=== PATIENT | male | born 1990 | race African-American/Black ===

== ENCOUNTER 2020-10-06 16:57 | Emergency (ER) | payer OTHER, SELFPAY ==
--- NOTE | ~2020-10-06 | CT_ITS ---
EXAMINATION: CT abdomen pelvis w con DATE: 10/06/2020 18:57 INDICATION: Abdominal pressure. TECHNIQUE: Computed tomography (CT) of the abdomen and pelvis was performed with 100 mL Omnipaque-350 intravenous contrast. Automated exposure control and iterative reconstruction technique were employe d. The dose-length product was 1196.74 mGy-cm. COMPARISON: None FINDINGS: Discoid atelectasis/scarring at the medial basilar left lower lobe. Additional less degree in the marcy gula. Heart size is normal. No pericardial or pleural effusion. Small sliding-type hiatal hernia. 3-4 mm low-attenuation likely cyst or hemangioma in the inferior right hepatic lobe. Gallbladder, spleen , pancreas, right kidney and bilateral adrenal glands are normal. Scattered cortical scarring at the right kidney most prominent in the upper pole which likely sequela of prior infection or infarction. Small bowel and appendix are normal. Large amount of stool scattered throughout the colon most promin ent at the distal sigmoid colon and rectum. There is wall thickening at the rectum which is seen with proctitis or stercoral colitis. Sauceda catheter within the decompressed bladder. No free intraperiton eal gas or fluid. No pathologically enlarged abdominal or pelvic lymphadenopathy. Bones are unremarka ble. IMPRESSION: 1. Large amount of colonic stool particularly at the rectum and distal sigmoid colon consistent with constipation. 2. Wall thickening at the rectum which could be seen with infectious or inflammatory proctitis or kam rcoral colitis related to chronic constipation. Reviewed, dictated and finalized at location A. IMPRESSION: 1. Large amount of colonic stool particularly at the rectum and distal sigmoid colon consistent with constipation. 2. Wall thickening at the rectum which could be seen with infectious or inflamm atory proctitis or stercoral colitis related to chronic constipation.
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
[2020-10-06 16:56] VITALS: BP 132/71; PULSE 96; RESP 18; TEMP 37.1; O2SAT 100
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
[2020-10-06 18:11] LABS: Basophils Absolute Auto 0.1 K/mm3 (0.0-0.1); Basophils Percent Auto 0.5 % (0.2-1.2); Eosinophils Absolute Auto 0.4 K/mm3 (0-0.3); Eosinophils Percent Auto 3.6 % (0-4.4); Hematocrit 32.6 % (42.0-52.0); Hemoglobin 10.6 g/dL (14.0-18.0); Immature Granulocyte Absolute 0.04 K/mm3 (0.00-0.031); Immature Granulocyte Percent A 0.4 % (0-0.5); Lymphocytes Absolute Auto 1.79 K/mm3 (0.9-3.2); Lymphocytes Percent Auto 16.3 % (18.3-44.2); Mean Corpuscular HGB Conc 32.5 g/dl (32-36); Mean Corpuscular Hemoglobin 28.3 pg (26-34); Mean Corpuscular Volume 86.9 fl (80-100); Mean Platelet Volume 8.9 fl (7.4-10.4); Monocytes Absolute Auto 0.7 K/mm3 (0.1-0.6); Monocytes Percent Auto 6.3 % (2.6-8.5); Neutrophils Percent Auto 72.9 % (45.5-73.1); Platelet Count Result 442 k/mm3 (150-375); Red Blood Count 3.75 M/mm3 (4.6-6.20); Red Cell Distribution Width 15.9 % (11.5-14.5)
[2020-10-06 18:22] LABS: Lactic Acid Reflex 1.6 mmol/L (0.7-2.1)
[2020-10-06 18:23] LABS: Alanine Aminotransferase 12 U/L (4-50); Alkaline Phosphatase 66 U/L (38-126); Anion Gap 8 mmol/L (8-16); Aspartate Amino Transferase 24 U/L (17-59); Bilirubin,Total < 0.1 mg/dL (0.2-1.3); Blood Urea Nitrogen 14 mg/dL (9-20); Calcium 8.7 mg/dL (8.4-10.2); Carbon Dioxide 28 mmol/L (22-30); Chloride 102 mmol/L (98-107); Estimated CRCL calculation 147 ml/min; Estimated Glomerular Filt Rate > 60; Glucose 134 mg/dL (75-110); Lipase 32 U/L (23-300); Potassium 3.8 mmol/L (3.4-5.0); Sodium 138 mmol/L (137-145)
[2020-10-06] MEDS: MAGNESIUM CITRATE 300 ML BTL PO (19:23)
[2020-10-06 19:39] LABS: Add Urine Microscopic? YES; Appearance Urine Cloudy (Clear); Bacteria Urine Trace /hpf; Bilirubin Urine Negative (Negative); Budding Yeast Urine Present /hpf; Color Urine Yellow (Yellow); Glucose Urine UA Negative (Negative); Ketones Urine Negative (Negative); Leukocyte Esterase Ur 3+ LEU/UL (Negative); Mucus Urine Rare /lpf; Nitrate Urine Negative (Negative); Protein Urine Negative (Negative); RBC Urine >75 /hpf (0-2); Specific Grav Ur 1.016 (1.001-1.035); Squamous Epithelial Cell Urine Occasional /hpf (Few); Urobilinogen Urine Negative mg/dL (<2.0); WBC Urine 21-30 /hpf
[2020-10-06 19:40] LABS: Blood Urine Negative (Negative)
[2020-10-06 21:48] VITALS: BP 136/78; PULSE 89; RESP 18; O2SAT 96
--- NOTE | 2020-10-06 22:21 | PC.NURSE ---
Cheryl called at 2200 for BLS transfer back to [facility]. ETA [id number]
--- NOTE | 2020-10-06 22:23 | PC.NURSE ---
Report called to [facility] with an update. They are not able to provide transportation. EMS will transport about 0015. Pt given update.
[2020-10-07 00:14] VITALS: BP 121/68; PULSE 82; RESP 18; O2SAT 96
--- NOTE | 2020-10-07 00:49 | PC.NURSE ---
Called [facility] for updated ETA of [id number]
--- NOTE | 2020-10-07 01:01 | PC.NURSE ---
Pt sleeping. Transport contacted and will now be here at 0330.
--- NOTE | 2020-10-07 04:22 | PC.NURSE ---
Called [facility] for an updated ETA of [id number]
[2020-10-07 06:48] VITALS: BP 132/71; PULSE 80; RESP 16; O2SAT 96
--- NOTE | 2020-10-07 06:48 | PC.NURSE ---
Awaiting transport to [place]. Last update they would be here at 0630.
--- NOTE | 2020-10-07 06:53 | PC.NURSE ---
Called [facility] for updated time for transport. [phone] is ETA.
--- NOTE | 2020-10-07 07:25 | PC.NURSE ---
Pt asleep easily arousable, non-labored respirations, siderails x2 up and adaptive call light within reach. Awaiting transport back to [place]
[2020-10-07 10:12] VITALS: BP 150/74; PULSE 109; RESP 18; O2SAT 100
--- NOTE | 2020-10-07 10:40 | PC.NURSE ---
Incontinence care provided (pt had small amt of hard stool), repositioned for comfort. Pt asking for his home medications (oxycodone, Lyrica, amitriptyline, baclofen), Dr Brown aware and orders placed per [place] [facility]
[2020-10-07] MEDS: PREGABALIN (*CRX) 75 MG CAPSULE 150 MG PO (11:23)
[2020-10-07] MEDS: oxyCODONE HCL (*CRX) 5 MG TAB IR PO (11:24)
--- NOTE | 2020-10-07 11:45 | PC.NURSE ---
Pt repositioned for comfort, lunch tray ordered. Waiting for transport back to [place]
[2020-10-07] MEDS: BACLOFEN 10 MG TABLET PO (11:51)
[2020-10-07] MEDS: AMITRIPTYLINE HCL 25 MG TABLET 150 MG PO (11:51)
== END 2020-10-07 12:56 ==
PROVIDERS: Emergency Provider Emergency Medicine
DX: K59.00 Constipation, unspecified (principal); G82.50 Quadriplegia, unspecified; S14.109S Unspecified injury at unspecified level of cervical spinal cord, sequela; W34.00XS Accidental discharge from unspecified firearms or gun, sequela
CPT/HCPCS: 36415; 71045; 74177; 80053; 81001; 83605; 83690; 85025; 87086; 87088; 99284; A9270; Q9967

== ENCOUNTER 2020-10-11 01:39 | Emergency (ER) | payer OTHER, SELFPAY ==
--- NOTE | ~2020-10-11 | CT_ITS ---
EXAMINATION: CT abdomen pelvis w con INDICATION: Abdominal pain TECHNIQUE: Computed tomographic images of the abdomen and pelvis were obtained after the administrati on of 100 cc of Omnipaque 350 intravenous contrast. The dose-length product (DLP) was 1336.34 mGy-cm. Automated exposure control and iterative reconstruction technique were employed. COMPARISON: 10/06/2020 FINDINGS: Minimal dependent atelectasis is present in the lung bases. The heart size is normal. The l iver, spleen, pancreas, gallbladder, and adrenal glands are normal. There is moderate cortical scarri ng of the left kidney. The right kidney is unremarkable. No pathologically enlarged abdominal or pelv ic lymph nodes are identified. There is no free intraperitoneal gas or evidence of bowel obstruction. A large volume of colonic stool is present. The appendix is normal. The bladder is decompressed by F oley catheter. IMPRESSION: 1. Constipation. Reviewed, dictated and finalized at location A. IMPRESSION: 1. Constipation.
[2020-10-11 01:38] VITALS: BP 144/89; PULSE 82; RESP 18; TEMP 36.3; O2SAT 100
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
[2020-10-11] MEDS: SODIUM CHLORIDE 0.9% IV 1,000 ML 999 ML IV CONT (02:14)
[2020-10-11] MEDS: MORPHINE SULFATE (*CRX) 4 MG/ML INJ IV PUSH (02:14)
[2020-10-11] MEDS: ONDANSETRON INJ 4 MG/2 ML VIAL IV PUSH (02:14)
[2020-10-11 02:32] LABS: Basophils Absolute Auto 0.1 K/mm3 (0.0-0.1); Basophils Percent Auto 0.6 % (0.2-1.2); Eosinophils Absolute Auto 0.3 K/mm3 (0-0.3); Eosinophils Percent Auto 3.6 % (0-4.4); Hemoglobin 10.2 g/dL (14.0-18.0); Immature Granulocyte Absolute 0.03 K/mm3 (0.00-0.031); Immature Granulocyte Percent A 0.3 % (0-0.5); Lymphocytes Absolute Auto 2.11 K/mm3 (0.9-3.2); Lymphocytes Percent Auto 22.4 % (18.3-44.2); Mean Corpuscular HGB Conc 32.9 g/dl (32-36); Mean Corpuscular Hemoglobin 28.6 pg (26-34); Mean Corpuscular Volume 86.8 fl (80-100); Mean Platelet Volume 9.1 fl (7.4-10.4); Monocytes Absolute Auto 0.9 K/mm3 (0.1-0.6); Monocytes Percent Auto 9.7 % (2.6-8.5); Neutrophils Percent Auto 63.4 % (45.5-73.1); Platelet Count Result 425 k/mm3 (150-375); Red Blood Count 3.57 M/mm3 (4.6-6.20); Red Cell Distribution Width 15.6 % (11.5-14.5); White Blood Count 9.4 K/mm3 (4.5-10.0)
[2020-10-11 02:43] LABS: Alanine Aminotransferase 17 U/L (4-50); Albumin Level 3.6 g/dL (3.5-5.1); Alkaline Phosphatase 55 U/L (38-126); Anion Gap 5 mmol/L (8-16); Aspartate Amino Transferase 25 U/L (17-59); Bilirubin,Total < 0.1 mg/dL (0.2-1.3); Blood Urea Nitrogen 15 mg/dL (9-20); Calcium 8.7 mg/dL (8.4-10.2); Carbon Dioxide 29 mmol/L (22-30); Chloride 104 mmol/L (98-107); Estimated CRCL calculation 137 ml/min; Estimated Glomerular Filt Rate > 60; Glucose 87 mg/dL (75-110); Lipase 25 U/L (23-300); Potassium 4.2 mmol/L (3.4-5.0); Sodium 138 mmol/L (137-145)
--- NOTE | 2020-10-11 04:09 | PC.NURSE ---
[facility] accepted return to [facility] ETA 0500 Trip# [id number]
[2020-10-11] MEDS: MAGNESIUM CITRATE 300 ML BTL PO (04:50)
[2020-10-11 05:02] VITALS: BP 133/78; PULSE 81; RESP 16; TEMP 36.9; O2SAT 98
== END 2020-10-11 05:03 ==
PROVIDERS: Emergency Provider Emergency Medicine; PCP Family Medicine
DX: K59.00 Constipation, unspecified (principal); G82.50 Quadriplegia, unspecified; S14.109S Unspecified injury at unspecified level of cervical spinal cord, sequela; W34.00XS Accidental discharge from unspecified firearms or gun, sequela
CPT/HCPCS: 36415; 74177; 80053; 83605; 83690; 85025; 96361; 96374; 96375; 99285; A9270; J2270; J2405; J7030; Q9967

== ENCOUNTER 2020-10-12 23:43 | Emergency (ER) | payer OTHER, SELFPAY ==
[2020-10-12 23:46] VITALS: BP 128/76; PULSE 86; RESP 16; TEMP 36.7
--- NOTE | 2020-10-13 00:28 | PC.NURSE ---
large BM removed with enema, Dr Castillo manually disimpacted pt for another lg BM
--- NOTE | 2020-10-13 00:33 | ED.ABDPAIN ---
HPI - Abdominal Pain General Chief Complaint: Abdominal Pain Stated Complaint: PRESSURE ON HIS BUTT Time Seen by Provider: 10/12/20 23:49 Source: patient Mode of arrival: EMS Limitations: no limitations History of Present Illness HPI narrative: 30-year-old with a history of paraplegia coming from a [facility] with complaints of rectal pain. Patient states the pain started this morning. He said he had a very small bowel movement. He denies any nausea or vomiting. MD elicited complaint: other (Rectal pain) Pertinent past history: constipation Onset (ago): day(s) (1) Pain Consistency: constant Quality: aching Migration to: no migration Exacerbating factors: nothing Relieving factors: nothing Related Data Home Medications Medication Instructions Recorded Confirmed amitriptyline 10/06/20 amitriptyline 10/06/20 10/06/20 amlodipine 10/06/20 baclofen mg 10/06/20 bisacodyl mg RECTAL 10/06/20 duloxetine mg PO 10/06/20 ergocalciferol (vitamin D2) 10/06/20 [Vitamin D2] lamotrigine 10/06/20 ondansetron 10/06/20 paroxetine HCl mg PO 10/06/20 pregabalin 10/06/20 propranolol 10/06/20 sulfamethoxazole-trimethoprim tablet 10/06/20 Allergies Allergy/AdvReac Type Severity Reaction Status Date / Time No Known Allergies Allergy Verified 10/06/20 17:36 Review of Systems Review of Systems: All systems reviewed & are unremarkable except as noted in HPI and below Constitutional: Constitutional: Reports no additional constitutional complaints Eyes: Eyes: Reports no additional eye complaints Cardiovascular: Cardiovascular: Reports no additional cardiovascular complaints Respiratory: Respiratory: Reports no additional respiratory complaints Gastrointestinal: Gastrointestinal: Reports as per HPI Genitourinary: Genitourinary: Reports as per HPI Musculoskeletal: Musculoskeletal: Reports no additional musculoskeletal complaints PMFSH Past Medical History Medical History Neuropathic pain Quadriplegia Social History Social History Gender identity (if verbalized by the patient): Male Exam Narrative: Exam Narrative: GENERAL: Well-appearing, well-nourished, and in no acute distress. HEAD: Normocephalic, atraumatic. EYES: PERRLA and EOMI. NECK: Supple. CHEST: Clear to auscultation. No respiratory distress. HEART: Regular rate and rhythm. No murmur heard. Normal peripheral pulses. ABDOMEN: Soft, nontender, nondistended, normal active bowel sounds. Rectal fecal imapction EXTREMITIES:no edema SKIN: Warm, dry, no rash. NEURO: Alert and oriented x3. paraplegic PSYCH: Normal mood and affect. Procedures Other Procedure Procedure 1: Other Procedure: Manually disimpacted stool after a eema , large amount of stool was passed. Course Vital Signs Vital signs: Vital Signs Temperature 36.7 C 10/12/20 23:46 Pulse Rate 86 10/12/20 23:46 Respiratory Rate 16 10/12/20 23:46 Blood Pressure 128/76 10/12/20 23:46 Temperature 36.7 C 10/12/20 23:46 Pulse Rate 86 10/12/20 23:46 Respiratory Rate 16 10/12/20 23:46 Blood Pressure 128/76 10/12/20 23:46 Discharge Plan Discharge Clinical Impression: Fecal impaction in rectum Patient Disposition: [facility] Living Condition: Stable Instructions: Antibiotic Form, Rectal Pain (ED) Prescriptions: No Action amitriptyline 150 mg tablet RF: 0 sulfamethoxazole-trimethoprim 800-160 mg tablet RF: 0 amitriptyline 50 mg tablet RF: 0 lamotrigine 25 mg tablet RF: 0 baclofen 20 mg tablet RF: 0 propranolol 10 mg tablet RF: 0 amlodipine 10 mg tablet RF: 0 bisacodyl 10 mg suppository RECTAL RF: 0 paroxetine HCl 20 mg tablet PO RF: 0 ergocalciferol (vitamin D2) [Vitamin D2] 1,250 mcg (50,000 unit) capsule
[2020-10-13 01:03] VITALS: BP 138/87; PULSE 82; RESP 16; TEMP 36.7; O2SAT 98
[2020-10-13 04:21] VITALS: BP 127/92; PULSE 80; RESP 18; O2SAT 97
[2020-10-13 07:24] VITALS: BP 120/87; PULSE 84; RESP 20; O2SAT 100
--- NOTE | 2020-10-13 07:47 | PC.NURSE ---
update eta for [facility] [id number]
[2020-10-13 09:12] VITALS: BP 117/79; PULSE 86; RESP 20; O2SAT 99
[2020-10-13 10:00] VITALS: BP 134/90; PULSE 87; RESP 20; O2SAT 99
== END 2020-10-13 10:00 ==
LOC: ANHED 10-13 00:43
PROVIDERS: Emergency Provider Family Medicine; PCP Family Medicine
DX: K56.41 Fecal impaction (principal); G82.50 Quadriplegia, unspecified
CPT/HCPCS: 99282

== ENCOUNTER 2020-10-19 21:44 | Emergency (ER) | payer OTHER, SELFPAY ==
[2020-10-19] VITALS (9 sets, daily range): BP systolic 116; BP diastolic 69; PULSE 96–107; RESP 13–24; TEMP 37.1; O2SAT 100
--- NOTE | ~2020-10-19 | XR_ITS ---
EXAMINATION: XR chest 1V portable EXAM DATE: 10/19/2020 22:24 INDICATION: Check location of pre-existing PICC line. TECHNIQUE: Portable AP frontal chest x-ray was obtained. Comparison is made to prior examination from 10/06/2020. FINDINGS: No change in position of the left-sided PICC line, tip projecting over the lower aspect of the SVC, adequate. There may be some pulmonary vascular congestion, or this could be from poor inspir ation. The lungs are clear. There are no pleural effusions. Cardiac silhouette is prominent but mag nified on this AP technique. There is no pneumothorax suspected. The bones and soft tissues are un remarkable. IMPRESSION: 1. Pulmonary vascular congestion versus crowding due to poor inspiration. 2. PICC line in position. Reviewed, dictated and finalized at location G.
--- NOTE | ~2020-10-19 | CT_ITS ---
EXAMINATION: CT abdomen pelvis w con EXAM DATE: 10/19/2020 23:47 INDICATION: Abdominal pain LLQ tenderness. TECHNIQUE: Spiral CT of the abdomen and pelvis was performed following intravenous injection of 100 m L Omnipaque 350. Axial, coronal and sagittal images of the abdomen and pelvis were reviewed. The do se-length product (DLP) for this examination was 1253.85 mGy-cm. The exposure was tailored according to patient size (auto mA exposure control), and iterative reconstruction (ASIR) was used as addition al dose reduction technique. Comparison is made to prior examination from 10/11/2020. FINDINGS: The liver, spleen, adrenal glands and pancreas are unremarkable. Gallbladder is unremarkab le. No biliary obstruction. Portal and splenic veins are patent. Kidneys enhance symmetrically. T here is no hydronephrosis. Regions of left renal cortical scarring. The prostate is unremarkable. T he bladder is collapsed with Sauceda catheter balloon anchor inside. There is no retroperitoneal or pe lvic lymphadenopathy. The appendix is normal. The stomach appears distended, but without evidence of outlet obstruction. There is moderate amount of colonic stool. No free intraperitoneal gas. The heart is normal in si ze. There are no pericardial or pleural effusions. Left basilar linear atelectasis. The bones are unremarkable. Compared to previous examination, improvement in previously seen right basilar subsegm ental atelectasis. Otherwise no significant interval change. IMPRESSION: 1. Moderate amount of colonic stool. Constipation? 2. Distended stomach. 3. Left renal cortical scarring. Reviewed, dictated and finalized at location G.
[2020-10-19 22:53] LABS: Basophils Absolute Auto 0.1 K/mm3 (0.0-0.1); Basophils Percent Auto 0.5 % (0.2-1.2); Eosinophils Absolute Auto 0.4 K/mm3 (0-0.3); Eosinophils Percent Auto 4.2 % (0-4.4); Hematocrit 31.7 % (42.0-52.0); Hemoglobin 10.3 g/dL (14.0-18.0); Immature Granulocyte Absolute 0.06 K/mm3 (0.00-0.031); Immature Granulocyte Percent A 0.6 % (0-0.5); Lymphocytes Absolute Auto 1.78 K/mm3 (0.9-3.2); Lymphocytes Percent Auto 19.1 % (18.3-44.2); Mean Corpuscular HGB Conc 32.5 g/dl (32-36); Mean Corpuscular Hemoglobin 28.3 pg (26-34); Mean Corpuscular Volume 87.1 fl (80-100); Mean Platelet Volume 8.8 fl (7.4-10.4); Monocytes Absolute Auto 0.7 K/mm3 (0.1-0.6); Monocytes Percent Auto 7.6 % (2.6-8.5); Neutrophils Absolute Auto 6.3 K/mm3 (1.3-6.7); Platelet Count Result 423 k/mm3 (150-375); Red Blood Count 3.64 M/mm3 (4.6-6.20); Red Cell Distribution Width 16.1 % (11.5-14.5); White Blood Count 9.3 K/mm3 (4.5-10.0)
[2020-10-19] MEDS: ONDANSETRON INJ 4 MG/2 ML VIAL IV PUSH (23:00)
[2020-10-19 23:02] LABS: Alanine Aminotransferase 16 U/L (4-50); Albumin Level 3.9 g/dL (3.5-5.1); Alkaline Phosphatase 66 U/L (38-126); Anion Gap 3 mmol/L (8-16); Aspartate Amino Transferase 33 U/L (17-59); Bilirubin,Total < 0.1 mg/dL (0.2-1.3); Blood Urea Nitrogen 22 mg/dL (9-20); Calcium 8.8 mg/dL (8.4-10.2); Carbon Dioxide 30 mmol/L (22-30); Chloride 104 mmol/L (98-107); Estimated CRCL calculation 90 ml/min; Estimated Glomerular Filt Rate > 60; Glucose 99 mg/dL (75-110); Lipase 27 U/L (23-300); Sodium 137 mmol/L (137-145)
[2020-10-19] MEDS: MORPHINE SULFATE (*CRX) 4 MG/ML INJ IV PUSH (23:03)
[2020-10-19] MEDS: SODIUM CHLORIDE 0.9% IV 1,000 ML 999 ML IV CONT (23:05)
--- NOTE | 2020-10-19 23:26 | ED.GENADULT ---
HPI - General Adult General Chief complaint: Abdominal Pain Stated complaint: ABD Pain Time Seen by Provider: 10/19/20 21:46 History of Present Illness HPI narrative: Patient 30-year-old gentleman who presents the emergency department with chief complaint of abdominal pain. Patient has history of quadriplegia and has been in the emergency department multiple times for abdominal pain and has had issues with constipation and fecal impaction. The patient was seen several days ago in the ER and manually disimpacted. Patient reports that he is continuing to have discomfort in his abdomen and reports that its not improved by anything. Related Data Home Medications Medication Instructions Recorded Confirmed amitriptyline 10/06/20 amitriptyline 10/06/20 10/06/20 amlodipine 10/06/20 baclofen mg 10/06/20 bisacodyl mg RECTAL 10/06/20 duloxetine mg PO 10/06/20 ergocalciferol (vitamin D2) 10/06/20 [Vitamin D2] lamotrigine 10/06/20 ondansetron 10/06/20 paroxetine HCl mg PO 10/06/20 pregabalin 10/06/20 propranolol 10/06/20 sulfamethoxazole-trimethoprim tablet 10/06/20 Allergies Allergy/AdvReac Type Severity Reaction Status Date / Time No Known Allergies Allergy Verified 10/06/20 17:36 Review of Systems Review of Systems: Narrative: A 10 system review of systems was completed on the patient and is negative except for what is stated in the HPI. Nursing and ancillary documentation was reviewed. PMFSH Past Medical History Medical History Neuropathic pain Quadriplegia Social History Social History Gender identity (if verbalized by the patient): Male Exam Narrative: Exam Narrative: GENERAL: Well-appearing, well-nourished, and in no acute distress. HEAD: Normocephalic, atraumatic. EYES: PERRLA and EOMI. ENT: Nares clear, no rhinorrhea or epistaxis. Mucous membranes moist. NECK: Supple. CHEST: Clear to auscultation. No respiratory distress. HEART: Regular rate and rhythm. No murmur heard. Normal peripheral pulses. ABDOMEN: Soft, diffusely tender, nondistended, normal active bowel sounds. EXTREMITIES: Baseline range of motion. No edema. SKIN: Warm, dry, no rash. Multiple wounds present on abdominal wall NEURO: No focal deficits. Alert and oriented x3. PSYCH: Normal mood and affect. Course Course Emergency Course: CT scan showed evidence of constipation. Laboratory studies are within normal limits there is a normal white blood cell count and normal lactic acid. Vital Signs Vital signs: Vital Signs Temperature 37.1 C 10/19/20 21:41 Pulse Rate 105 H 10/19/20 21:41 Respiratory Rate 24 H 10/19/20 21:41 Blood Pressure 116/69 10/19/20 21:41 Pulse Oximetry 100 10/19/20 21:41 Temperature 37.1 C 10/19/20 21:41 Pulse Rate 102 H 10/20/20 00:24 Respiratory Rate 18 10/20/20 00:24 Blood Pressure 127/80 10/20/20 00:24 Pulse Oximetry 100 10/20/20 00:24 Medical Decision Making Vital Signs Vital Signs: Vital Signs Temperature 37.1 C 10/19/20 21:41 Pulse Rate 105 H 10/19/20 21:41 Respiratory Rate 24 H 10/19/20 21:41 Blood Pressure 116/69 10/19/20 21:41 Pulse Oximetry 100 10/19/20 21:41 Temperature 37.1 C 10/19/20 21:41 Pulse Rate 102 H 10/20/20 00:24 Respiratory Rate 18 10/20/20 00:24 Blood Pressure 127/80 10/20/20 00:24 Pulse Oximetry 100 10/20/20 00:24 Lab Data Result diagrams: 10/19/20 22:44 10/19/20 22:44 Labs: Lab Results 10/19/20 10/19/20 10/19/20 Range/Units 22:44 22:44 22:44 WBC 9.3 (4.5-10.0) K/mm3 RBC 3.64 L (4.6-6.20) M/mm3 Hgb 10.3 L (14.0-18.0) g/dL Hct 31.7 L (42.0-52.0) % MCV 87.1 (80-100) fl MCH 28.3 (26-34) pg MCHC 32.5 (32-36) g/dl RDW 16.1 H (11.5-14.5) % Plt Count 423 H (150-375) k/mm3 MPV 8.8
[2020-10-20] VITALS (24 sets, daily range): BP systolic 111–147; BP diastolic 67–114; PULSE 86–104; RESP 10–19; O2SAT 100
[2020-10-20 00:15] LABS: Add Urine Microscopic? YES; Appearance Urine Cloudy (Clear); Bacteria Urine 4+ /hpf; Bilirubin Urine Negative (Negative); Blood Urine Negative (Negative); Budding Yeast Urine Present /hpf; Color Urine Yellow (Yellow); Glucose Urine UA Negative (Negative); Ketones Urine Negative (Negative); Leukocyte Esterase Ur 1+ LEU/UL (Negative); Mucus Urine Rare /lpf; Nitrate Urine Negative (Negative); Protein Urine Negative (Negative); RBC Urine >75 /hpf (0-2); Specific Grav Ur 1.033 (1.001-1.035); Squamous Epithelial Cell Urine Occasional /hpf (Few); Urobilinogen Urine Negative mg/dL (<2.0)
[2020-10-20] MEDS: MORPHINE SULFATE (*CRX) 4 MG/ML INJ IV PUSH (00:59)
--- NOTE | 2020-10-20 01:11 | PC.NURSE ---
made contact with [facility] to transfer pt to [facility]. eta [phone]
--- NOTE | 2020-10-20 02:18 | PC.NURSE ---
made contact with [employer] dispatcher informed me that the company is dropping a pt off at [facility] and will be in route after that.
--- NOTE | 2020-10-20 03:28 | PC.NURSE ---
shameka has arrived and is aware that pt is going to [facility]
== END 2020-10-20 03:48 ==
PROVIDERS: Emergency Provider Emergency Medicine; PCP Family Medicine
DX: K59.00 Constipation, unspecified (principal); R10.84 Generalized abdominal pain; G82.50 Quadriplegia, unspecified; R91.8 Other nonspecific abnormal finding of lung field
CPT/HCPCS: 36415; 71045; 74177; 80053; 81001; 83605; 83690; 85025; 87086; 96361; 96374; 96375; 99284; J2270; J2405; J7030; Q9967

== ENCOUNTER 2020-10-27 17:40 | Inpatient (IN) | payer OTHER, SELFPAY ==
[2020-10-27] VITALS (22 sets, daily range): BP systolic 94–187; BP diastolic 59–99; PULSE 97–112; RESP 16–21; TEMP 37.9–39.8; O2SAT 93–97
--- NOTE | ~2020-10-27 | CT_ITS ---
EXAMINATION: CT abdomen pelvis wo con DATE: 10/27/2020 18:55 INDICATION: Fever TECHNIQUE: Computed tomography (CT) of the abdomen and pelvis was performed without intravenous contr ast. The dose-length product (DLP) was 1229.20 mGy-cm. Automated exposure control and iterative recon struction technique were employed. COMPARISON: 10/19/2020 FINDINGS: There is near complete opacification of the right lower lobe. Patchy airspace opacities are seen in the right middle lobe, the lingula, and the left lower lobe. The liver, spleen, pancreas, ga llbladder, and adrenal glands are normal. There is cortical scarring of the left kidney. The right ki dney is unremarkable. No pathologically enlarged abdominal or pelvic lymph nodes are identified. Ther e is no free intraperitoneal gas or evidence of bowel obstruction. A large volume of colonic stool is present. The bladder is decompressed by Sauceda catheter. The appendix is normal. IMPRESSION: 1. Near complete opacification of the right lower lobe and patchy airspace opacities throughout the r emaining visualized lung bases, consistent with pneumonia. 2. Constipation. Reviewed, dictated and finalized at location A. IMPRESSION: 1. Near complete opacification of the right lower lobe and patchy airspace opac ities throughout the remaining visualized lung bases, consistent with pneumonia . 2. Constipation.
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
--- NOTE | ~2020-10-27 | CT_ITS ---
EXAMINATION: CT diagnostic chest wo con DATE: 10/29/2020 12:31 INDICATION: Shortness of breath, worsening pneumonia TECHNIQUE: Computed tomography (CT) of the chest was performed without intravenous contrast. The dose -length product (DLP) was 467.69 mGy-cm. Automated exposure control and iterative reconstruction tech [employer] ([employer]que were employed. COMPARISON: 10/27/2020 FINDINGS: There is persistent near complete opacification of the right lower lobe. Airspace opacities involving much of the right upper and middle lobes has developed. There are patchy groundglass opaci ties throughout the left lung. Previously identified left lung opacities also demonstrate interval wo rsening. There is a small right pleural effusion. No pneumothorax is identified. Mediastinal lymphade nopathy is noted, likely reactive. The heart size is normal. IMPRESSION: 1. Near complete opacification of the right lung and patchy opacities of the left lung, consistent wi th worsening pneumonia. Reviewed, dictated and finalized at location A. IMPRESSION: 1. Near complete opacification of the right lung and patchy opacities of the le ft lung, consistent with worsening pneumonia.
--- NOTE | ~2020-10-27 | XR_ITS ---
EXAMINATION: XR chest 1V portable INDICATION: Assess PICC position TECHNIQUE: Portable AP chest at 1823 hours COMPARISON: 10/19/2020 FINDINGS: A left upper extremity PICC ends with its tip in the proximal superior vena cava. There is airspace opacity and volume loss in the right lung base. Airspace opacities have developed in the lef t mid and upper lung zones. The left lung is clear. The cardiomediastinal silhouette is stable. A sma ll right pleural effusion is suggested. There is no pneumothorax. A metallic density projects over th e left first rib. IMPRESSION: 1. Left upper extremity PICC ending with its tip in the proximal superior vena cava. 2. Airspace opacity and volume loss of the right lung base and airspace opacities of the right mid an d upper lung zones, consistent with atelectasis versus pneumonia. Reviewed, dictated and finalized at location A. IMPRESSION: 1. Left upper extremity PICC ending with its tip in the proximal superior vena cava. 2. Airspace opacity and volume loss of the right lung base and airspace opaciti es of the right mid and upper lung zones, consistent with atelectasis versus pn eumonia.
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
--- NOTE | ~2020-10-27 | XR_ITS ---
EXAMINATION: XR chest 1V portable INDICATION: Shortness of breath TECHNIQUE: Portable AP chest at 0602 hours COMPARISON: 10/27/2020 FINDINGS: A left upper extremity PICC is followed to the midsuperior vena cava. There are worsening a irspace opacities throughout the right lung. Minimal left basilar airspace opacities have developed. Heart size is normal. There is no pleural effusion or pneumothorax. A metallic density projects over the left lung apex. IMPRESSION: 1. Diffuse lung disease with interval worsening, consistent with pneumonia and/or pulmonary edema and /or acute respiratory distress syndrome (ARDS). Reviewed, dictated and finalized at location A. IMPRESSION: 1. Diffuse lung disease with interval worsening, consistent with pneumonia and/ or pulmonary edema and/or acute respiratory distress syndrome (ARDS).
--- NOTE | 2020-10-27 17:56 | ECG_ITS ---
Measurements Intervals [place] Rate: 105 P: 54 W[place]: 144 QRS: 44 QRSD: 106 T: 61 QT: 325 QTc: 430 Interpretive Statements SINUS TACHYCARDIA POSSIBLE LEFT ATRIAL ENLARGEMENT TYPE 1 BRUGADA PATTERN ABNORMAL ECG Electronically Signed On 10-27-2020 20:18:39 CDT by Mario Dc D.O.
[2020-10-27] MEDS: LACTATED RINGERS 1,000 ML 999 ML IV CONT ×3 (18:47→19:10)
[2020-10-27 18:50] LABS: Basophils Absolute Auto 0.1 K/mm3 (0.0-0.1); Basophils Percent Auto 0.5 % (0.2-1.2); Hematocrit 31.4 % (42.0-52.0); Hemoglobin 10.3 g/dL (14.0-18.0); Immature Granulocyte Absolute 0.11 K/mm3 (0.00-0.031); Immature Granulocyte Percent A 0.5 % (0-0.5); Lymphocytes Absolute Auto 1.16 K/mm3 (0.9-3.2); Lymphocytes Percent Auto 5.7 % (18.3-44.2); Mean Corpuscular HGB Conc 32.8 g/dl (32-36); Mean Corpuscular Volume 85.3 fl (80-100); Mean Platelet Volume 9.2 fl (7.4-10.4); Monocytes Absolute Auto 1.6 K/mm3 (0.1-0.6); Monocytes Percent Auto 7.6 % (2.6-8.5); Neutrophils Absolute Auto 17.5 K/mm3 (1.3-6.7); Neutrophils Percent Auto 85.7 % (45.5-73.1); Platelet Count Result 412 k/mm3 (150-375); Red Blood Count 3.68 M/mm3 (4.6-6.20); White Blood Count 20.4 K/mm3 (4.5-10.0)
[2020-10-27 19:02] LABS: Magnesium 2.4 mg/dL (1.6-2.3)
[2020-10-27 19:03] LABS: Alanine Aminotransferase 11 U/L (4-50); Albumin Level 3.6 g/dL (3.5-5.1); Alkaline Phosphatase 60 U/L (38-126); Anion Gap 9 mmol/L (8-16); Aspartate Amino Transferase 28 U/L (17-59); Bilirubin,Total 0.4 mg/dL (0.2-1.3); Blood Urea Nitrogen 17 mg/dL (9-20); Calcium 8.4 mg/dL (8.4-10.2); Carbon Dioxide 21 mmol/L (22-30); Chloride 103 mmol/L (98-107); Estimated CRCL calculation 83 ml/min; Estimated Glomerular Filt Rate > 60; Glucose 90 mg/dL (75-110); Potassium 3.8 mmol/L (3.4-5.0); Sodium 133 mmol/L (137-145)
[2020-10-27 19:14] LABS: Troponin I < 0.012 ng/mL (0.000-0.034)
[2020-10-27 19:20] LABS: Add Urine Microscopic? YES; Appearance Urine Cloudy (Clear); Bacteria Urine Trace /hpf; Bilirubin Urine Negative (Negative); Blood Urine 2+ (Negative); Color Urine Yellow (Yellow); Glucose Urine UA Negative (Negative); Ketones Urine 1+ mg/dL (Negative); Leukocyte Esterase Ur 2+ LEU/UL (Negative); Mucus Urine Rare /lpf; Nitrate Urine Negative (Negative); Protein Urine 2+ mg/dL (Negative); RBC Urine 21-50 /hpf (0-2); Specific Grav Ur 1.019 (1.001-1.035)
[2020-10-27] MEDS: metroNIDAZOLE 500 MG/ISO 100ML 500 MG/100 ML BAG 100 MG IVPB (20:05)
[2020-10-27] MEDS: LACTATED RINGERS 1,000 ML 75 ML (21:25)
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
[2020-10-27 22:16] LABS: Troponin I < 0.012 ng/mL (0.000-0.034)
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
[2020-10-28] VITALS (25 sets, daily range): BP systolic 93–146; BP diastolic 46–83; PULSE 95–117; RESP 14–24; TEMP 36.4–39; O2SAT 77–98; BMI 26.6; BMI 27.6
[2020-10-28] MEDS: ALBUTEROL SULFATE NEB 2.5 MG/0.5 ML INH 5 MG INHALATION ×3 (01:18→14:10)
[2020-10-28 01:47] LABS: Troponin I < 0.012 ng/mL (0.000-0.034)
--- NOTE | 2020-10-28 03:15 | PC.NURSE ---
This patient, Lazaro Olvera, was admitted to [facility] Room 327-01. Patient/family oriented to hospital policies and general routines including ID bracelet, bed and alarms, visiting hours, pain management, procedures, bathroom and other care routines, personal items, smoking policy, room service/diet, and visiting hours. Information on how to activate the Rapid Response Team has been discussed. Patient/Family are encouraged to report perceived risks to care and to ask questions if they do not understand what they are told or what they should do.
[2020-10-28] MEDS: ACETAMINOPHEN 325 MG TABLET 650 MG PO ×2 (03:39→11:40)
[2020-10-28] MEDS: LACTATED RINGERS 1,000 ML 125 ML IV CONT ×3 (03:49→22:00)
[2020-10-28 06:09] LABS: Alveolar/Arterial O2 Gradient 194.5 mmHg; Fractional Inspired Oxygen 40 %; HCO3 ABG 18.9 mEq/l (22.0-26.0); Oxygen Content ABG 11.5 %vol (16.0-22.0); Oxygen Saturation ABG 89.6 % (95.0-100.0); Oxyhemoglobin 85.4 % THb (90.0-100.0); PCO2 ABG 30.7 mmHg (35.0-45.0); PO2 ABG 55.4 mmHg (80.0-100.0); PO2 FiO2 Ratio Arterial Blood 1.38 %; Total Hemoglobin 9.5 g/dL (12.0-18.0); pH ABG 7.407 (7.350-7.450)
[2020-10-28 06:10] LABS: Site Drawn RIGHT RADIAL
[2020-10-28 06:11] LABS: Device NASAL CANNULA; Modified Allen's Test Unable to perform
[2020-10-28] MEDS: DOCUSATE SODIUM 400 MG/400 ML ENEMA RECTAL (06:31)
[2020-10-28 06:56] LABS: Basophils Absolute Auto 0.1 K/mm3 (0.0-0.1); Basophils Percent Auto 0.3 % (0.2-1.2); Hematocrit 25.2 % (42.0-52.0); Hemoglobin 8.2 g/dL (14.0-18.0); Immature Granulocyte Absolute 0.15 K/mm3 (0.00-0.031); Immature Granulocyte Percent A 0.7 % (0-0.5); Lymphocytes Absolute Auto 0.93 K/mm3 (0.9-3.2); Lymphocytes Percent Auto 4.6 % (18.3-44.2); Mean Corpuscular HGB Conc 32.5 g/dl (32-36); Mean Corpuscular Hemoglobin 27.6 pg (26-34); Mean Corpuscular Volume 84.8 fl (80-100); Mean Platelet Volume 9.2 fl (7.4-10.4); Monocytes Absolute Auto 0.8 K/mm3 (0.1-0.6); Monocytes Percent Auto 4.1 % (2.6-8.5); Neutrophils Percent Auto 90.3 % (45.5-73.1); Platelet Count Result 325 k/mm3 (150-375); Red Blood Count 2.97 M/mm3 (4.6-6.20); Red Cell Distribution Width 15.6 % (11.5-14.5)
[2020-10-28 06:59] LABS: Anion Gap 9 mmol/L (8-16); Blood Urea Nitrogen 12 mg/dL (9-20); Calcium 8.3 mg/dL (8.4-10.2); Carbon Dioxide 21 mmol/L (22-30); Chloride 105 mmol/L (98-107); Estimated CRCL calculation 99 ml/min; Estimated Glomerular Filt Rate > 60; Glucose 182 mg/dL (75-110); Potassium 3.4 mmol/L (3.4-5.0); Sodium 135 mmol/L (137-145)
[2020-10-28 08:11] LABS: Anisocytosis 1+ (NORMAL); Hypochromasia 1+ (NORMAL); Platelet Estimate Adequate (Adequate); Poikilocytosis 1+ (NORMAL)
--- NOTE | 2020-10-28 08:16 | PM.CCN ---
Critical Care Event Note Summary Code activated: No Narrative: 10/28/2020 at 5:30 a.m. Nursing staff called me as the patient called them into the room saying he could not breathe. The patient was having desaturations down to the low 80s. The patient was lethargic and confused. His temperature at that time had spiked to 102.2. A stat ABG was performed which demonstrated mild respiratory alkalosis with hypoxia. Patient's oxygen saturations at improved up to 91% on 5 L nasal cannula. Of the repeat stat chest x-ray was ordered demonstrated worsening right upper and lower lobe pneumonia and new infiltrate on the left lower lobe. The patient's exam was consistent with these findings with development of new crackles on the left lung hernandez. At the time of my evaluation the patient was noted to have some brief periods of apnea. Assessment and plan: Acute hypoxic respiratory failure due to pneumonia and sepsis: Will place the patient on CPAP while asleep as the patient was noted to be having episodes of apnea when I arrived in the room. Will also add nebulizer treatments with Xopenex and Atrovent. Will also add Pulmozyme q.12 hours. CPT has been ordered. 30 minutes was spent in critical care activities. This case had a high probability of a clinically significant, sudden, or life threatening deterioration of this patient's condition which required my full and direct attention, intervention and personal management. Critical care time: 30 - 74 mins
[2020-10-28] MEDS: ENOXAPARIN 40 MG/0.4 ML SYRINGE SUB-Q (09:51)
[2020-10-28] MEDS: PARoxetine 20 MG TABLET PO (09:52)
[2020-10-28] MEDS: polyethylene glycoL 3350 17 GM POWD.PACK PO (09:52)
[2020-10-28] MEDS: amLODIPine BESYLATE 5 MG TABLET 10 MG PO (09:52)
[2020-10-28] MEDS: lamoTRIgine 25 MG TABLET PO (09:52)
[2020-10-28] MEDS: DULoxetine HCL 60 MG CAPSULE.DR PO (09:52)
[2020-10-28] MEDS: BACLOFEN 10 MG TABLET PO ×3 (09:52→16:57)
[2020-10-28] MEDS: SENNA/DOCUSATE SODIUM TABLET 1 TAB PO (09:52)
[2020-10-28] MEDS: PREGABALIN (*CRX) 75 MG CAPSULE 150 MG PO ×2 (09:52→16:57)
[2020-10-28] MEDS: SACCHAROMYCES BOULARDII 250 MG CAPSULE PO (09:52)
[2020-10-28] MEDS: PROPRANOLOL HCL 10 MG TABLET PO (09:53)
[2020-10-28] MEDS: SILVER SULFADIAZINE 1% CR 400 GM JAR (*BKC) 1 APPLIC TOPICAL (11:41)
[2020-10-28] MEDS: IPRATROPIUM BR 0.02% INH SOLN 0.5 MG/2.5 ML VIAL INHALATION ×2 (14:10→21:03)
--- NOTE | 2020-10-28 15:18 | PC.NURSE ---
This patient, Lazaro Olvera, was transferred to [[facility] ] on 10/28/20 at 1500. Personal belongings sent with patient. Report given to [ Massiel RIOJAS]. Appropriate documentation sent with patient.
--- NOTE | 2020-10-28 15:21 | PM.IMPN ---
Progress Note: A&P Assessment and Plan (1) Sepsis: Qualifiers: Sepsis type: sepsis due to unspecified organism Sepsis acute organ dysfunction status: with acute organ dysfunction Severe sepsis acute organ dysfunction type: acute respiratory failure Acute respiratory failure type: with hypoxia Severe sepsis shock status: without septic shock Qualified Code(s): A41.9 - Sepsis, unspecified organism; R65.20 - Severe sepsis without septic shock; J96.01 - Acute respiratory failure with hypoxia Code(s): A41.9 - Sepsis, unspecified organism Status: Acute (2) Pneumonia: Qualifiers: Laterality: right Lung location: unspecified part of lung Pneumonia type: due to unspecified organism Qualified Code(s): J18.9 - Pneumonia, unspecified organism Code(s): J18.9 - Pneumonia, unspecified organism Status: Acute (3) Decubitus ulcers: Qualifiers: Pressure injury location: sacral region Pressure injury stage: unspecified pressure injury stage Qualified Code(s): L89.159 - Pressure ulcer of sacral region, unspecified stage Code(s): L89.90 - Pressure ulcer of unspecified site, unspecified stage Status: Acute (4) Brugada syndrome: Code(s): I49.8 - Other specified cardiac arrhythmias Status: Acute (5) Constipation due to neurogenic bowel: Code(s): K59.00 - Constipation, unspecified; K59.2 - Neurogenic bowel, not elsewhere classified Status: Acute (6) Chronic indwelling Sauceda catheter: Code(s): Z97.8 - Presence of other specified devices Status: Acute Additional Plan The patient has sepsis due to right upper and lower lobe pneumonia. Bacterial pneumonia is the most likely cause. However patient lives [facility] [place] [facility] and has not received the COVID-19 vaccine. Subsequently the patient been placed on COVID precautions and COVID PCR is pending. The patient has been placed on broad-spectrum antibiotic coverage with vancomycin and Zosyn. CPT has been ordered. blood cultures and urine cultures are pending. Patient does have indwelling Sauceda catheter with UA demonstrating leukocyte esterase, 10-15 wbc's and trace bacteria. UTIs less likely cause for the patient's sepsis. He does have multiple decubitus ulcers and has recently been treated for osteomyelitis of these wounds. Wound Care has been consulted for recommendations as to wound management. The patient does have a PICC line in place which I suspect was likely supposed to be removed after he finishes antibiotic therapy at the beginning of October. The patient line was not removed and the specifics on a plan of treatment need to be clarified. The patient did not know if the PICC line was post remain in place. He cannot tell me where he received his care for his decubitus ulcers. Patient's EKG demonstrates Brugada pattern. High risk of sudden cardiac given EKG pattern. Cardiology has been consulted. Will monitor on telemetry. The patient has chronic constipation due to neurogenic bowel. Will place patient on MiraLax b.i.d.. Will continue his rectal suppository but will schedule Q 48 hours. Will order Colace enema x1. 10/29/[address] Morales this am transfer to IMU for higher level of care Subjective Date/time seen: 10/28/20 23:21 pt with worsening resp function, now on 15L orders placed to transfer to IMU Objective Data Vital Signs Vital Signs: Vital Signs - 24 hr 10/27/20 23:53 10/28/20 01:22 10/28/20 01:29 Temperature 100.3 F H Pulse Rate 108 H 105 H Respiratory Rate 19 14 Blood Pressure Pulse Oximetry 10/28/20 03:15 10/28/20 03:39 10/28/20 04:00 Temperature 100.1 F H 100.1 F H 99.2 F Pulse Rate 117 H 106 H Respiratory Rate 18 20 Blood Pressure 146/83 H 117/46 L Pulse Oximetry 91 97 10/28/20 04:39 10/28/20 05:40 10/28/20 07:11 Temperature 99.2 F 102.2 F H Pulse Rate 104 H Respiratory Rate 24 H Blood Pressure Pulse
[2020-10-28] MEDS: FUROSEMIDE INJ 40 MG/4 ML VIAL IV PUSH (15:48)
[2020-10-28 19:55] LABS: SARS-CoV-2 RNA PCR Negative
[2020-10-28] MEDS: DORNASE ALFA INH SOLN 1 MG/ML 2.5 ML AMP 2.5 MG INHALATION (21:04)
[2020-10-28] MEDS: AMITRIPTYLINE HCL 25 MG TABLET 200 MG PO (22:01)
[2020-10-28] MEDS: IBUPROFEN 600 MG TABLET PO (22:26)
[2020-10-28] MEDS: ONDANSETRON INJ 4 MG/2 ML VIAL IV PUSH (22:52)
[2020-10-29] VITALS (29 sets, daily range): BP systolic 98–146; BP diastolic 42–80; PULSE 84–112; RESP 20–35; TEMP 36.8–39.2; O2SAT 86–100
[2020-10-29] MEDS: IPRATROPIUM BR 0.02% INH SOLN 0.5 MG/2.5 ML VIAL INHALATION ×4 (01:57→20:46)
[2020-10-29] MEDS: IBUPROFEN 600 MG TABLET PO (04:01)
[2020-10-29] MEDS: LACTATED RINGERS 1,000 ML 125 ML IV CONT ×2 (05:07→12:52)
[2020-10-29 05:50] LABS: Alveolar/Arterial O2 Gradient 336.3 mmHg; Base Excess ABG -0.2 mEq/l (+/-2.0); Carboxyhemoglobin 0.3 % THb (0-2.0); Fractional Inspired Oxygen 60 %; HCO3 ABG 22.7 mEq/l (22.0-26.0); Methemoglobin ABG 0.4 %THb (0-1.5); Oxygen Content ABG 11.3 %vol (16.0-22.0); Oxygen Saturation ABG 92.5 % (95.0-100.0); Oxyhemoglobin 89.6 % THb (90.0-100.0); PCO2 ABG 30.5 mmHg (35.0-45.0); PO2 FiO2 Ratio Arterial Blood 0.97 %; Reduced Hemoglobin 9.7 %THb (0-5.0); Total Hemoglobin 8.9 g/dL (12.0-18.0)
[2020-10-29] MEDS: ACETAMINOPHEN 325 MG TABLET 650 MG PO (05:50)
[2020-10-29 05:51] LABS: Modified Allen's Test Pass; Site Drawn RIGHT RADIAL
[2020-10-29 06:28] LABS: Device CPAP
[2020-10-29] MEDS: DORNASE ALFA INH SOLN 1 MG/ML 2.5 ML AMP 2.5 MG INHALATION ×2 (08:11→20:47)
[2020-10-29 08:16] LABS: Basophils Absolute Auto 0.1 K/mm3 (0.0-0.1); Basophils Percent Auto 0.4 % (0.2-1.2); Hematocrit 23.4 % (42.0-52.0); Hemoglobin 7.8 g/dL (14.0-18.0); Immature Granulocyte Percent A 1.9 % (0-0.5); Lymphocytes Absolute Auto 0.99 K/mm3 (0.9-3.2); Lymphocytes Percent Auto 4.7 % (18.3-44.2); Mean Corpuscular HGB Conc 33.3 g/dl (32-36); Mean Corpuscular Hemoglobin 28.2 pg (26-34); Mean Corpuscular Volume 84.5 fl (80-100); Mean Platelet Volume 9.8 fl (7.4-10.4); Monocytes Absolute Auto 1.1 K/mm3 (0.1-0.6); Monocytes Percent Auto 5.2 % (2.6-8.5); Neutrophils Absolute Auto 18.6 K/mm3 (1.3-6.7); Neutrophils Percent Auto 87.8 % (45.5-73.1); Platelet Count Result 293 k/mm3 (150-375); Red Blood Count 2.77 M/mm3 (4.6-6.20); Red Cell Distribution Width 15.7 % (11.5-14.5); White Blood Count 21.2 K/mm3 (4.5-10.0)
[2020-10-29 08:27] LABS: Alanine Aminotransferase 15 U/L (4-50); Albumin Level 2.8 g/dL (3.5-5.1); Alkaline Phosphatase 54 U/L (38-126); Anion Gap 4 mmol/L (8-16); Aspartate Amino Transferase 24 U/L (17-59); Bilirubin,Total 0.6 mg/dL (0.2-1.3); Blood Urea Nitrogen 15 mg/dL (9-20); Calcium 7.7 mg/dL (8.4-10.2); Carbon Dioxide 23 mmol/L (22-30); Chloride 102 mmol/L (98-107); Estimated CRCL calculation 90 ml/min; Estimated Glomerular Filt Rate > 60; Glucose 103 mg/dL (75-110); Potassium 3.7 mmol/L (3.4-5.0); Sodium 129 mmol/L (137-145)
[2020-10-29 08:28] LABS: INR 1.6; Prothrombin Time 19.2 Seconds (11.1-14.7)
[2020-10-29 08:29] LABS: Partial Thromboplastin Time 38.6 SECONDS (22.3-36.8)
[2020-10-29 08:29] LABS: Lactic Acid Reflex 0.9 mmol/L (0.7-2.1)
[2020-10-29 08:42] LABS: Anisocytosis 1+ (NORMAL); Hypochromasia 1+ (NORMAL); Platelet Estimate Adequate (Adequate); Poikilocytosis 1+ (NORMAL)
--- NOTE | 2020-10-29 08:46 | PC.NURSE ---
0540- [facility] updated RN that this Pt has a fever. RN went to assess Pt and give Pt medication. Pt found very lethargic, labored breathing, tachypneic w/RR 30's. O2 saturations decreasing to 70% on 5L HF NC. Pt arousable to sternal rub. Pt placed back on CPAP 8, 12, FIO2 increased to 100%. SPO2 increasing to 90-95%. After several minutes, the Pt became more responsive. Dr. Morales and charge account clerkZora notified of change in Pt's condition. Stat orders obtained. ABG obtained and reported to Dr. Morales. Pt changed to BIPAP 15/5, 12, 60%. Stat chest xray ordered. Pt was able to take tylenol PO for fever without difficulty when he was more alert. Pt remains on BIPAP at this time. Will continue to monitor Pt.
[2020-10-29] MEDS: ENOXAPARIN 40 MG/0.4 ML SYRINGE SUB-Q (08:57)
[2020-10-29] MEDS: BACLOFEN 10 MG TABLET PO ×3 (08:57→17:13)
[2020-10-29] MEDS: SENNA/DOCUSATE SODIUM TABLET 1 TAB PO (08:57)
[2020-10-29] MEDS: PROPRANOLOL HCL 10 MG TABLET PO (08:57)
[2020-10-29] MEDS: SILVER SULFADIAZINE 1% CR 400 GM JAR (*BKC) 1 APPLIC TOPICAL (08:57)
[2020-10-29] MEDS: DULoxetine HCL 60 MG CAPSULE.DR PO (08:57)
[2020-10-29] MEDS: SACCHAROMYCES BOULARDII 250 MG CAPSULE PO (08:57)
[2020-10-29] MEDS: lamoTRIgine 25 MG TABLET PO (08:57)
[2020-10-29] MEDS: amLODIPine BESYLATE 5 MG TABLET 10 MG PO (08:57)
[2020-10-29] MEDS: PREGABALIN (*CRX) 75 MG CAPSULE 150 MG PO ×2 (08:57→17:13)
[2020-10-29] MEDS: polyethylene glycoL 3350 17 GM POWD.PACK PO ×2 (08:57→17:15)
[2020-10-29] MEDS: PARoxetine 20 MG TABLET PO (08:57)
[2020-10-29 09:05] LABS: Vancomycin Trough 19.1 ug/mL (10.0-20.0)
--- NOTE | 2020-10-29 09:26 | PM.IMPN ---
Progress Note: A&P Assessment and Plan (1) Sepsis: Qualifiers: Acute respiratory failure type: with hypoxia Sepsis acute organ dysfunction status: with acute organ dysfunction Sepsis type: sepsis due to unspecified organism Severe sepsis acute organ dysfunction type: acute respiratory failure Severe sepsis shock status: without septic shock Qualified Code(s): A41.9 - Sepsis, unspecified organism; R65.20 - Severe sepsis without septic shock; J96.01 - Acute respiratory failure with hypoxia Code(s): A41.9 - Sepsis, unspecified organism Status: Acute (2) Pneumonia: Qualifiers: Laterality: right Lung location: unspecified part of lung Pneumonia type: due to unspecified organism Qualified Code(s): J18.9 - Pneumonia, unspecified organism Code(s): J18.9 - Pneumonia, unspecified organism Status: Acute (3) Decubitus ulcers: Qualifiers: Pressure injury location: sacral region Pressure injury stage: unspecified pressure injury stage Qualified Code(s): L89.159 - Pressure ulcer of sacral region, unspecified stage Code(s): L89.90 - Pressure ulcer of unspecified site, unspecified stage Status: Acute (4) Brugada syndrome: Code(s): I49.8 - Other specified cardiac arrhythmias Status: Acute (5) Constipation due to neurogenic bowel: Code(s): K59.00 - Constipation, unspecified; K59.2 - Neurogenic bowel, not elsewhere classified Status: Acute (6) Chronic indwelling Sauceda catheter: Code(s): Z97.8 - Presence of other specified devices Status: Acute Additional Plan The patient has sepsis due to right upper and lower lobe pneumonia. Bacterial pneumonia is the most likely cause. However patient lives at a [facility] facility and has not received the COVID-19 vaccine. Subsequently the patient been placed on COVID precautions and COVID PCR is pending. The patient has been placed on broad-spectrum antibiotic coverage with vancomycin and Zosyn. CPT has been ordered. blood cultures and urine cultures are pending. Patient does have indwelling Sauceda catheter with UA demonstrating leukocyte esterase, 10-15 wbc's and trace bacteria. UTIs less likely cause for the patient's sepsis. He does have multiple decubitus ulcers and has recently been treated for osteomyelitis of these wounds. Wound Care has been consulted for recommendations as to wound management. The patient does have a PICC line in place which I suspect was likely supposed to be removed after he finishes antibiotic therapy at the beginning of October. The patient line was not removed and the specifics on a plan of treatment need to be clarified. The patient did not know if the PICC line was post remain in place. He cannot tell me where he received his care for his decubitus ulcers. Patient's EKG demonstrates Brugada pattern. High risk of sudden cardiac given EKG pattern. Cardiology has been consulted. Will monitor on telemetry. The patient has chronic constipation due to neurogenic bowel. Will place patient on MiraLax b.i.d.. Will continue his rectal suppository but will schedule Q 48 hours. Will order Colace enema x1. 10/28/[address] Morales this am transfer to IMU for higher level of care 10/29/20 resp status unimproved on BiPAP cont abx cefepime and vancomycin consult pulm Dr Jackson recommendations appreciated Subjective Date/time seen: 10/29/20 09:26 Patient on BiPAP wakes up alert oriented x3 follows commands and answers questions appropriately. RT bedside and we reviewed plan of care pending pulmonary evaluation. Exam Narrative: Exam Narrative: PHYSICAL EXAM: General: No acute distress, chronically ill-appearing, well-developed well-nourished, on BiPAP HEENT: Mucous membranes are tacky, no oral pharyngeal erythema, pupils are equal and reactive, no scleral icterus, no conjunctival pallor Respiratory: Coarse crackles the right, no tachypnea Cardiovascular:
[2020-10-29 09:58] LABS: Alveolar/Arterial O2 Gradient 396.2 mmHg; Base Excess ABG -1.6 mEq/l (+/-2.0); Carboxyhemoglobin 0.3 % THb (0-2.0); Fractional Inspired Oxygen 70 %; HCO3 ABG 21.9 mEq/l (22.0-26.0); Methemoglobin ABG 0.3 %THb (0-1.5); Oxygen Content ABG 11.9 %vol (16.0-22.0); Oxygen Saturation ABG 94.8 % (95.0-100.0); Oxyhemoglobin 92.2 % THb (90.0-100.0); PCO2 ABG 31.8 mmHg (35.0-45.0); PO2 ABG 68.7 mmHg (80.0-100.0); PO2 FiO2 Ratio Arterial Blood 0.98 %; Reduced Hemoglobin 7.2 %THb (0-5.0); Total Hemoglobin 9.1 g/dL (12.0-18.0); pH ABG 7.455 (7.350-7.450)
[2020-10-29 10:00] LABS: Device NON-INVASIVE VENT; Modified Allen's Test Pass; Site Drawn LEFT RADIAL
[2020-10-29 10:01] LABS: Non-Invasive Expiratory Pressure 8 CMH2O; Non-Invasive Inspiratory Pressure 18 CMH2O; Non-Invasive Vent Rate 16 /MIN
[2020-10-29] MEDS: methylPREDNISolone SOD SUCC 125 MG VIAL 80 MG IV PUSH ×3 (12:39→23:17)
--- NOTE | 2020-10-29 12:51 | PCRCNOTE ---
Rt called to patients room, SpO2 decreased to 76%. RT noticed changes were made to BIPAP no order had been placed and RN unaware of change. Dr. Green contacted and he states he had made changes and would put in his note.
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
[2020-10-29 13:29] LABS: NT Pro B Type Natriuretic Pept 3160 pg/mL (5-100)
[2020-10-29] MEDS: KCL 20 MEQ/SW 100 ML 100 ML 50 MEQ IVPB (13:34)
[2020-10-29] MEDS: FUROSEMIDE INJ 40 MG/4 ML VIAL IV PUSH (13:34)
[2020-10-29 17:17] LABS: Alveolar/Arterial O2 Gradient 414.6 mmHg; Base Excess ABG -1.2 mEq/l (+/-2.0); Carboxyhemoglobin 0.3 % THb (0-2.0); Fractional Inspired Oxygen 70 %; HCO3 ABG 21.7 mEq/l (22.0-26.0); Methemoglobin ABG 0.2 %THb (0-1.5); Oxygen Content ABG 13.3 %vol (16.0-22.0); Oxygen Saturation ABG 89.4 % (95.0-100.0); Oxyhemoglobin 85.7 % THb (90.0-100.0); PCO2 ABG 30.4 mmHg (35.0-45.0); PO2 ABG 51.8 mmHg (80.0-100.0); PO2 FiO2 Ratio Arterial Blood 0.74 %; Reduced Hemoglobin 13.8 %THb (0-5.0); pH ABG 7.472 (7.350-7.450)
[2020-10-29 17:22] LABS: Modified Allen's Test Pass; Site Drawn RIGHT RADIAL
[2020-10-29 17:24] LABS: Device NON-INVASIVE VENT
[2020-10-29 17:25] LABS: Non-Invasive Expiratory Pressure 8 CMH2O; Non-Invasive Inspiratory Pressure 14 CMH2O; Non-Invasive Vent Rate 18 /MIN
[2020-10-29] MEDS: AMITRIPTYLINE HCL 25 MG TABLET 200 MG PO (20:43)
[2020-10-30] VITALS (20 sets, daily range): BP systolic 110–144; BP diastolic 67–89; PULSE 49–107; RESP 16–28; TEMP 36.4–37.1; O2SAT 90–100; BMI 27.3
[2020-10-30] MEDS: IPRATROPIUM BR 0.02% INH SOLN 0.5 MG/2.5 ML VIAL INHALATION ×3 (02:04→13:46)
[2020-10-30] MEDS: methylPREDNISolone SOD SUCC 125 MG VIAL 80 MG IV PUSH ×4 (05:12→23:25)
[2020-10-30 05:22] LABS: Basophils Percent Auto 0.1 % (0.2-1.2); Hematocrit 28.9 % (42.0-52.0); Hemoglobin 9.5 g/dL (14.0-18.0); Immature Granulocyte Absolute 0.18 K/mm3 (0.00-0.031); Lymphocytes Absolute Auto 0.69 K/mm3 (0.9-3.2); Lymphocytes Percent Auto 3.7 % (18.3-44.2); Mean Corpuscular HGB Conc 32.9 g/dl (32-36); Mean Corpuscular Hemoglobin 27.8 pg (26-34); Mean Corpuscular Volume 84.5 fl (80-100); Mean Platelet Volume 9.7 fl (7.4-10.4); Monocytes Absolute Auto 0.5 K/mm3 (0.1-0.6); Monocytes Percent Auto 2.6 % (2.6-8.5); Neutrophils Absolute Auto 17.1 K/mm3 (1.3-6.7); Neutrophils Percent Auto 92.6 % (45.5-73.1); Nucleated Red Blood Cells Perc 0.1 % (0.0-0.2); Platelet Count Result 331 k/mm3 (150-375); Red Blood Count 3.42 M/mm3 (4.6-6.20); Red Cell Distribution Width 15.4 % (11.5-14.5); White Blood Count 18.4 K/mm3 (4.5-10.0)
[2020-10-30 05:54] LABS: Anion Gap 2 mmol/L (8-16); Blood Urea Nitrogen 18 mg/dL (9-20); Calcium 8.2 mg/dL (8.4-10.2); Carbon Dioxide 28 mmol/L (22-30); Chloride 104 mmol/L (98-107); Estimated CRCL calculation 99 ml/min; Estimated Glomerular Filt Rate > 60; Glucose 132 mg/dL (75-110); Magnesium 2.3 mg/dL (1.6-2.3); Potassium 3.5 mmol/L (3.4-5.0); Sodium 134 mmol/L (137-145)
[2020-10-30 05:55] LABS: Platelet Estimate Adequate (Adequate)
[2020-10-30 05:56] LABS: Anisocytosis 1+ (NORMAL); Poikilocytosis 1+ (NORMAL)
[2020-10-30] MEDS: DORNASE ALFA INH SOLN 1 MG/ML 2.5 ML AMP 2.5 MG INHALATION (08:17)
[2020-10-30 09:11] LABS: Alveolar/Arterial O2 Gradient 323.1 mmHg; Base Excess ABG -0.1 mEq/l (+/-2.0); Carboxyhemoglobin 0.2 % THb (0-2.0); Fractional Inspired Oxygen 70 %; HCO3 ABG 24.3 mEq/l (22.0-26.0); Methemoglobin ABG 0.1 %THb (0-1.5); Modified Allen's Test Pass; Oxygen Saturation ABG 98.7 % (95.0-100.0); Oxyhemoglobin 97.5 % THb (90.0-100.0); PCO2 ABG 38.5 mmHg (35.0-45.0); PO2 ABG 134.6 mmHg (80.0-100.0); PO2 FiO2 Ratio Arterial Blood 1.92 %; Reduced Hemoglobin 2.2 %THb (0-5.0); Site Drawn RIGHT RADIAL; pH ABG 7.418 (7.350-7.450)
[2020-10-30 09:12] LABS: Device NON-INVASIVE VENT; Non-Invasive Expiratory Pressure 8 CMH2O; Non-Invasive Inspiratory Pressure 14 CMH2O; Non-Invasive Vent Rate 18 /MIN
[2020-10-30] MEDS: ENOXAPARIN 40 MG/0.4 ML SYRINGE SUB-Q (10:37)
[2020-10-30] MEDS: SENNA/DOCUSATE SODIUM TABLET 1 TAB PO (10:37)
[2020-10-30] MEDS: PARoxetine 20 MG TABLET PO (10:38)
[2020-10-30] MEDS: DULoxetine HCL 60 MG CAPSULE.DR PO (10:38)
[2020-10-30] MEDS: lamoTRIgine 25 MG TABLET PO (10:38)
[2020-10-30] MEDS: amLODIPine BESYLATE 5 MG TABLET 10 MG PO (10:38)
[2020-10-30] MEDS: polyethylene glycoL 3350 17 GM POWD.PACK PO ×2 (10:38→16:04)
[2020-10-30] MEDS: BACLOFEN 10 MG TABLET PO ×3 (10:38→16:02)
[2020-10-30] MEDS: SACCHAROMYCES BOULARDII 250 MG CAPSULE PO (10:39)
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
[2020-10-30] MEDS: PREGABALIN (*CRX) 75 MG CAPSULE 150 MG PO ×2 (10:43→16:05)
[2020-10-30 10:55] LABS: CPAP 8 cmH2O
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
--- NOTE | 2020-10-30 12:57 | PCNSR ---
On 10/30/20, the student, Arielle Morrison, provided care and completed [facility] documentation on this patient. I have reviewed the student's documentation and agree with the findings.
[2020-10-30] MEDS: PROPRANOLOL HCL 10 MG TABLET PO (13:16)
[2020-10-30] MEDS: CENTRAL LINE FLUSH 10 ML IV PUSH ×2 (13:18→21:05)
[2020-10-30] MEDS: SILVERGEL (ELTA) 45 ML 1 APPLIC TOPICAL (16:07)
--- NOTE | 2020-10-30 18:41 | PC.NURSE ---
Pt had this RN take off abdominal dressings even after education was given on infection and healing benefits of wound care orders. RN removed abdominal dressings.
[2020-10-30] MEDS: HYOSCYAMINE SULFATE 0.125 MG TABLET PO (19:37)
[2020-10-30] MEDS: AMITRIPTYLINE HCL 25 MG TABLET 200 MG PO (21:04)
[2020-10-31] VITALS (23 sets, daily range): BP systolic 108–129; BP diastolic 50–69; PULSE 74–96; RESP 12–24; TEMP 36.2–36.9; O2SAT 97–100
--- NOTE | 2020-10-31 | ECHO_ITS ---
Patient Info Name: Lazaro Olvera Age: 30 years : 1990 Gender: Male Ht: 70 in Wt: 192 lbs BSA: 2.09 m2 HR: 83 bpm BP: 122 / 69 mmHg Technical Quality: Fair Exam Date: 10/31/2020 9:50 AM Exam Location: [facility] Pulmonary Patient Status: Inpatient Admit Date: 10/27/2020 Staff Ordering Physician: Binta Green MD Music Supervisor: XUAN Attending Provider: Noe Rodriguez MD Referring Physician: Norma AUGUST; Exam Type: CA echo doppler color flow Study Info Indications J96.20 - Acute and chronic respiratory failure, unspecified whether with hypoxia or hypercapnia Complete two-dimensional, color flow and Doppler transthoracic echocardiogram is performed. Summary 1. Complete two-dimensional, color flow and Doppler transthoracic echocardiogram is performed. 2. Left ventricular chamber dimension is normal. 3. Left ventricular systolic function is normal, estimated at 60-65%. 4. The left ventricular diastolic function is abnormal. 5. E/e' 11 is mildly elevated. 6. There is trace tricuspid valve regurgitation. 7. No pulmonary hypertension, estimated pulmonary arterial systolic pressure is 37 mmHg. Left Ventricle E/e' 11 is mildly elevated. Left ventricular chamber dimension is normal. Left ventricular systolic function is normal, estimated at 60-65%. The left ventricular diastolic function is abnormal. Right Ventricle Right ventricular chamber dimension is not well visualized. Left Atria Left atrial chamber dimension is normal. Right Atria Right atrial chamber dimension is normal. Aortic Valve The aortic valve is trileaflet. There is no aortic valve stenosis. There is no aortic valve regurgitation. Pulmonic Valve There is no pulmonic regurgitation. Mitral Valve There is no mitral valve stenosis. There is no mitral valve regurgitation. Tricuspid Valve There is trace tricuspid valve regurgitation. No pulmonary hypertension, estimated pulmonary arterial systolic pressure is 37 mmHg. Pericardium/Pleural There is no pericardial effusion. Inferior Vena Cava Normal inferior vena cava with >50% collapse upon inspiration consistent with normal right atrial pressure, 5 mmHg. Aorta The aortic root size at the sinus of Valsalva is normal. Left Ventricular Outflow Tract Name Value Normal LVOT 2D LVOT Diameter 2.3 cm LVOT Doppler LVOT Peak Gradient 5 mmHg LVOT Mean Gradient 3 mmHg LVOT VTI 26 cm LVOT VTI/AV VTI Ratio 0.8 LVOT Stroke Volume 107 ml LVOT CO 22.5 l/min LVOT CI 10.8 l/min/m2 Pulmonic Valve Name Value Normal PV Doppler PV Peak Gradient 4 mmHg Mitral Valve ------
[2020-10-31] MEDS: IPRATROPIUM BR 0.02% INH SOLN 0.5 MG/2.5 ML VIAL INHALATION ×4 (01:51→20:19)
[2020-10-31] MEDS: methylPREDNISolone SOD SUCC 125 MG VIAL 80 MG IV PUSH (05:31)
[2020-10-31] MEDS: CENTRAL LINE FLUSH 10 ML IV PUSH ×3 (05:31→20:57)
[2020-10-31] MEDS: DORNASE ALFA INH SOLN 1 MG/ML 2.5 ML AMP 2.5 MG INHALATION (08:59)
[2020-10-31] MEDS: BACLOFEN 10 MG TABLET PO ×2 (10:21→13:41)
[2020-10-31] MEDS: SENNA/DOCUSATE SODIUM TABLET 1 TAB PO (10:22)
[2020-10-31] MEDS: ENOXAPARIN 40 MG/0.4 ML SYRINGE SUB-Q (10:22)
[2020-10-31] MEDS: amLODIPine BESYLATE 5 MG TABLET 10 MG PO (10:22)
[2020-10-31] MEDS: SACCHAROMYCES BOULARDII 250 MG CAPSULE PO (10:23)
[2020-10-31] MEDS: PROPRANOLOL HCL 10 MG TABLET PO (10:23)
[2020-10-31] MEDS: DULoxetine HCL 60 MG CAPSULE.DR PO (10:23)
[2020-10-31] MEDS: PARoxetine 20 MG TABLET PO (10:24)
[2020-10-31] MEDS: lamoTRIgine 25 MG TABLET PO (10:24)
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
[2020-10-31 13:04] LABS: SARS-CoV-2 RNA PCR Negative
[2020-10-31] MEDS: SILVERGEL (ELTA) 45 ML 1 APPLIC TOPICAL (13:49)
[2020-10-31] MEDS: ACETAMINOPHEN 325 MG TABLET 650 MG PO (15:15)
--- NOTE | 2020-10-31 15:27 | PM.IMPN ---
Progress Note: A&P Assessment and Plan (1) Sepsis: Qualifiers: Sepsis type: sepsis due to unspecified organism Sepsis acute organ dysfunction status: with acute organ dysfunction Severe sepsis acute organ dysfunction type: acute respiratory failure Acute respiratory failure type: with hypoxia Severe sepsis shock status: without septic shock Qualified Code(s): A41.9 - Sepsis, unspecified organism; R65.20 - Severe sepsis without septic shock; J96.01 - Acute respiratory failure with hypoxia Code(s): A41.9 - Sepsis, unspecified organism Status: Acute Assessment and Plan: 10/31/20 15:27 The patient has sepsis due to right upper and lower lobe pneumonia. Bacterial pneumonia is the most likely cause. However [facility] and has not received the COVID-19 vaccine. Subsequently the patient been placed on COVID precautions and COVID PCR is pending. The patient has been placed on broad-spectrum antibiotic coverage with vancomycin and Zosyn. CPT has been ordered. blood cultures and urine cultures are pending. Patient does have indwelling Sauceda catheter with UA demonstrating leukocyte esterase, 10-15 wbc's and trace bacteria. UTIs less likely cause for the patient's sepsis. He does have multiple decubitus ulcers and has recently been treated for osteomyelitis of these wounds. Wound Care has been consulted for recommendations as to wound management. The patient does have a PICC line in place which I suspect was likely supposed to be removed after he finishes antibiotic therapy at the beginning of October. The patient line was not removed and the specifics on a plan of treatment need to be clarified. The patient did not know if the PICC line was post remain in place. He cannot tell me where he received his care for his decubitus ulcers. 10/31 patient COVID test is negative, patient is seen by pulmonology suspect patient has a bilateral pneumonia recommending to continue Cefepime, vancomycin and added azithromycin to cover for atypical, started the patient on Solu-Medrol 80 mg every 6 hours, american sign language interpreter suspect patient may also have underlining CHF,. Stopped IVF and started the patient on IV Lasix to diurese, also adjusted his BiPAP, suspect patient is a very high risk of respiratory failure need close monitoring, today patient is feeling better but does complaint of pain and neck and bilateral shoulder will apply Lidoderm patches will continue to monitor and further recommendation to follow (2) Bilateral pneumonia: Code(s): J18.9 - Pneumonia, unspecified organism Status: Acute Assessment and Plan: Plan is above (3) Decubitus ulcers: Qualifiers: Pressure injury location: sacral region Pressure injury stage: unspecified pressure injury stage Qualified Code(s): L89.159 - Pressure ulcer of sacral region, unspecified stage Code(s): L89.90 - Pressure ulcer of unspecified site, unspecified stage Status: Acute Assessment and Plan: Will have wound team assess the patient and and treat (4) Brugada syndrome: Code(s): I49.8 - Other specified cardiac arrhythmias Status: Acute Assessment and Plan: Patient with of Brugada syndrome tend to have cardiac arrhythmia patient is being monitor on telemetry (5) Acute hypoxemic respiratory failure: Code(s): J96.01 - Acute respiratory failure with hypoxia Status: Acute Additional Plan The patient has sepsis due to right upper and lower lobe pneumonia. Bacterial pneumonia is the most likely cause. However patient lives at a jail facility and has not received the COVID-19 vaccine. Subsequently the patient been placed on COVID precautions and COVID PCR is pending. The patient has been placed on broad-spectrum antibiotic coverage with vancomycin and Zosyn. CPT has been ordered. blood cultures and urine cultures are pending. Patient does have indwelling Sauceda catheter with UA
[2020-10-31] MEDS: PREGABALIN (*CRX) 75 MG CAPSULE 150 MG PO (17:00)
[2020-10-31] MEDS: ALTEPLASE 2 MG VIAL (CATHFLO) IV PUSH (18:06)
[2020-10-31] MEDS: AMITRIPTYLINE HCL 25 MG TABLET 200 MG PO (21:14)
[2020-11-01] VITALS (23 sets, daily range): BP systolic 107–124; BP diastolic 51–78; PULSE 72–101; RESP 18–28; TEMP 36.3–37.1; O2SAT 84–100
[2020-11-01] MEDS: IPRATROPIUM BR 0.02% INH SOLN 0.5 MG/2.5 ML VIAL INHALATION ×3 (02:06→20:07)
[2020-11-01] MEDS: CENTRAL LINE FLUSH 10 ML IV PUSH ×3 (05:05→20:54)
--- NOTE | 2020-11-01 06:23 | PC.NURSE ---
PATIENT REFUSED BLOOD DRAW. PATIENT KEPT ASKING TO LEAVE AMA. PATIENT WOULD NOT EXPLAIN WHAT WAS WRONG AND WHY HE WAS UPSET. I KEPT GENTLY TALKING TO HIM UNTIL HE FINALLY TOLD ME WHY HE WAS UPSET AND I FIXED EVERYTHING.
[2020-11-01] MEDS: PARoxetine 20 MG TABLET PO (10:47)
[2020-11-01] MEDS: PROPRANOLOL HCL 10 MG TABLET PO (10:47)
[2020-11-01] MEDS: DULoxetine HCL 60 MG CAPSULE.DR PO (10:47)
[2020-11-01] MEDS: PREGABALIN (*CRX) 75 MG CAPSULE 150 MG PO ×2 (10:47→18:51)
[2020-11-01] MEDS: SENNA/DOCUSATE SODIUM TABLET 1 TAB PO (10:47)
[2020-11-01] MEDS: lamoTRIgine 25 MG TABLET PO (10:48)
[2020-11-01] MEDS: SILVERGEL (ELTA) 45 ML 1 APPLIC TOPICAL (10:48)
[2020-11-01] MEDS: amLODIPine BESYLATE 5 MG TABLET 10 MG PO (10:48)
[2020-11-01] MEDS: SACCHAROMYCES BOULARDII 250 MG CAPSULE PO (10:48)
[2020-11-01] MEDS: BACLOFEN 10 MG TABLET PO ×3 (10:48→18:51)
[2020-11-01] MEDS: ENOXAPARIN 40 MG/0.4 ML SYRINGE SUB-Q (10:49)
[2020-11-01] MEDS: LIDOCAINE 5% PATCH 3 PATCH TRANSDERM (10:49)
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
[2020-11-01] MEDS: polyethylene glycoL 3350 17 GM POWD.PACK PO (10:50)
--- NOTE | 2020-11-01 16:14 | PM.IMPN ---
Progress Note: A&P Assessment and Plan (1) Sepsis: Qualifiers: Sepsis type: sepsis due to unspecified organism Sepsis acute organ dysfunction status: with acute organ dysfunction Severe sepsis acute organ dysfunction type: acute respiratory failure Acute respiratory failure type: with hypoxia Severe sepsis shock status: without septic shock Qualified Code(s): A41.9 - Sepsis, unspecified organism; R65.20 - Severe sepsis without septic shock; J96.01 - Acute respiratory failure with hypoxia Code(s): A41.9 - Sepsis, unspecified organism Status: Acute Assessment and Plan: 11/01/20 16:14 The patient has sepsis due to right upper and lower lobe pneumonia. Bacterial pneumonia is the most likely cause. However patient lives at a [facility]-way facility and has not received the COVID-19 vaccine. Subsequently the patient been placed on COVID precautions and COVID PCR is pending. The patient has been placed on broad-spectrum antibiotic coverage with vancomycin and Zosyn. CPT has been ordered. blood cultures and urine cultures are pending. Patient does have indwelling Sauceda catheter with UA demonstrating leukocyte esterase, 10-15 wbc's and trace bacteria. UTIs less likely cause for the patient's sepsis. He does have multiple decubitus ulcers and has recently been treated for osteomyelitis of these wounds. Wound Care has been consulted for recommendations as to wound management. The patient does have a PICC line in place which I suspect was likely supposed to be removed after he finishes antibiotic therapy at the beginning of October. The patient line was not removed and the specifics on a plan of treatment need to be clarified. The patient did not know if the PICC line was post remain in place. He cannot tell me where he received his care for his decubitus ulcers. 10/31 patient COVID test is negative, patient is seen by pulmonology suspect patient has a bilateral pneumonia recommending to continue Cefepime, vancomycin and added azithromycin to cover for atypical, started the patient on Solu-Medrol 80 mg every 6 hours, email engineer suspect patient may also have underlining CHF,. Stopped IVF and started the patient on IV Lasix to diurese, also adjusted his BiPAP, suspect patient is a very high risk of respiratory failure need close monitoring, today patient is feeling better but does complaint of pain and neck and bilateral shoulder will apply Lidoderm patches will continue to monitor and further recommendation to follow. 11/01 today patient doing better clinically and not a short of breath, discussed with email engineer patient nasopharynx is positive for MRSA and 1 bottle blood culture is positive for peptostreptococcus, and corynebacterium, recommended to continue cefepime and vancomycin until FridayNovember 06, will continue present management, applied 3 Lidoderm patches on upper back to control some of his pain, will continue to monitor and further recommendation to (2) Bilateral pneumonia: Code(s): J18.9 - Pneumonia, unspecified organism Status: Acute Assessment and Plan: Plan is above (3) Decubitus ulcers: Qualifiers: Pressure injury location: sacral region Pressure injury stage: unspecified pressure injury stage Qualified Code(s): L89.159 - Pressure ulcer of sacral region, unspecified stage Code(s): L89.90 - Pressure ulcer of unspecified site, unspecified stage Status: Acute Assessment and Plan: Will have wound team assess the patient and and treat (4) Brugada syndrome: Code(s): I49.8 - Other specified cardiac arrhythmias Status: Acute Assessment and Plan: Patient with of Brugada syndrome tend to have cardiac arrhythmia patient is being monitor on telemetry (5) Acute hypoxemic respiratory failure: Code(s): J96.01 - Acute respiratory failure with hypoxia Status: Acute Additional Plan The patient has sepsis due to right upper and lower lobe
[2020-11-01] MEDS: AMITRIPTYLINE HCL 25 MG TABLET 200 MG PO (20:55)
[2020-11-01] MEDS: ACETAMINOPHEN 325 MG TABLET 650 MG PO (20:55)
[2020-11-01] MEDS: oxyCODONE HCL (*CRX) 5 MG TAB IR PO (21:25)
[2020-11-02] VITALS (16 sets, daily range): BP systolic 112–139; BP diastolic 50–98; PULSE 90–109; RESP 18–30; TEMP 36.5–37.4; O2SAT 87–100
[2020-11-02] MEDS: IPRATROPIUM BR 0.02% INH SOLN 0.5 MG/2.5 ML VIAL INHALATION ×4 (01:41→21:18)
[2020-11-02] MEDS: ACETAMINOPHEN 325 MG TABLET 650 MG PO (05:54)
[2020-11-02] MEDS: oxyCODONE HCL (*CRX) 5 MG TAB IR PO ×2 (05:54→21:33)
[2020-11-02 05:55] LABS: Basophils Absolute Auto 0.1 K/mm3 (0.0-0.1); Basophils Percent Auto 0.3 % (0.2-1.2); Eosinophils Absolute Auto 0.3 K/mm3 (0-0.3); Eosinophils Percent Auto 1.3 % (0-4.4); Hematocrit 24.2 % (42.0-52.0); Hemoglobin 7.9 g/dL (14.0-18.0); Immature Granulocyte Absolute 1.08 K/mm3 (0.00-0.031); Immature Granulocyte Percent A 5.6 % (0-0.5); Lymphocytes Absolute Auto 2.44 K/mm3 (0.9-3.2); Lymphocytes Percent Auto 12.6 % (18.3-44.2); Mean Corpuscular HGB Conc 32.6 g/dl (32-36); Mean Corpuscular Hemoglobin 27.7 pg (26-34); Mean Corpuscular Volume 84.9 fl (80-100); Mean Platelet Volume 9.8 fl (7.4-10.4); Monocytes Absolute Auto 1.6 K/mm3 (0.1-0.6); Monocytes Percent Auto 8.4 % (2.6-8.5); Neutrophils Absolute Auto 13.9 K/mm3 (1.3-6.7); Neutrophils Percent Auto 71.8 % (45.5-73.1); Nucleated Red Blood Cells Absolute Auto 0.1 K/mm3 (0.0-0.012); Nucleated Red Blood Cells Perc 0.4 % (0.0-0.2); Platelet Count Result 366 k/mm3 (150-375); Red Blood Count 2.85 M/mm3 (4.6-6.20); Red Cell Distribution Width 15.9 % (11.5-14.5); White Blood Count 19.3 K/mm3 (4.5-10.0)
[2020-11-02] MEDS: CENTRAL LINE FLUSH 10 ML IV PUSH ×2 (05:55→15:25)
[2020-11-02 06:06] LABS: Estimated CRCL calculation 109 ml/min; Estimated Glomerular Filt Rate > 60
[2020-11-02] MEDS: ENOXAPARIN 40 MG/0.4 ML SYRINGE SUB-Q (09:19)
[2020-11-02] MEDS: PROPRANOLOL HCL 10 MG TABLET PO (09:20)
[2020-11-02] MEDS: SACCHAROMYCES BOULARDII 250 MG CAPSULE PO (09:20)
[2020-11-02] MEDS: PREGABALIN (*CRX) 75 MG CAPSULE 150 MG PO ×2 (09:20→17:20)
[2020-11-02] MEDS: PARoxetine 20 MG TABLET PO (09:20)
[2020-11-02] MEDS: BACLOFEN 10 MG TABLET PO ×3 (09:20→17:20)
[2020-11-02] MEDS: DULoxetine HCL 60 MG CAPSULE.DR PO (09:20)
[2020-11-02] MEDS: SENNA/DOCUSATE SODIUM TABLET 1 TAB PO (09:21)
[2020-11-02] MEDS: amLODIPine BESYLATE 5 MG TABLET 10 MG PO (09:21)
[2020-11-02] MEDS: LIDOCAINE 5% PATCH 3 PATCH TRANSDERM (09:22)
[2020-11-02] MEDS: lamoTRIgine 25 MG TABLET PO (09:22)
[2020-11-02] MEDS: polyethylene glycoL 3350 17 GM POWD.PACK PO ×2 (09:27→17:23)
--- NOTE | 2020-11-02 10:57 | PCDIET ---
Nutrition Follow-Up Complete: Nutrition Diagnosis: Increased protein needs related to history of quadriplegia and having active wounds as evidenced by a diagnosis of sepsis and pressure ulcer. Nutrition Goal: Patient to consume at least 75% of meals Goal in progress. Patient reports fluctuating appetite. Reports any nausea is resolved with Zofran which has not been needed for several days. Reports taking both Ensure and Arginaid at intermediate. Recommend adding Ensure Enlive (350kcal, 20g protein) TID with meals and Tree (80kcal, 14g amino acids) BID. Small, frequent meals encouraged to maximize intake. Patient denies issues with heart healthy diet. Reports eating very little meat in general and states most of protein intake is obtained via supplements, other than fish and eggs. Last recorded weight is 90.4 kg which is increased from last review. Bowel Motility: Last documented BM on 11/01/20 x 1. Labs Reviewed: WBC (19.3), Hgb (7.9), Hct (24.2) Meds Noted: Elavil, Norvasc, Zithromax, Cefepime, Levsin, Atrovent, Xopenex, Florastor, Senna, Vancomycin Additional Notes: Integumentary notes reviewed. Will continue to monitor with same goal. Nutrition Monitoring and Evaluation: Will follow up in 5 days.
[2020-11-02] MEDS: BENZOCAINE/MENTHOL (*BKC) 18 EA LOZENGE 1 LOZENGE PO (12:13)
--- NOTE | 2020-11-02 13:24 | PC.NURSE ---
This patient, Lazaro Olvera, was transferred to [facility] on 11/02/20 at 1324. Personal belongings sent with patient. Report given to BEULAH Rodriges. Appropriate documentation sent with patient.
--- NOTE | 2020-11-02 13:30 | PC.NURSE ---
This patient, Lazaro Olvera, was received from [facility] on 11/02/20 at 1330. Patient/family oriented to unit policies and routines
--- NOTE | 2020-11-02 14:21 | PM.IMPN ---
Progress Note: A&P Assessment and Plan (1) Sepsis: Qualifiers: Sepsis type: sepsis due to unspecified organism Sepsis acute organ dysfunction status: with acute organ dysfunction Severe sepsis acute organ dysfunction type: acute respiratory failure Acute respiratory failure type: with hypoxia Severe sepsis shock status: without septic shock Qualified Code(s): A41.9 - Sepsis, unspecified organism; R65.20 - Severe sepsis without septic shock; J96.01 - Acute respiratory failure with hypoxia Code(s): A41.9 - Sepsis, unspecified organism Status: Acute Assessment and Plan: 11/02/20 14:21 The patient has sepsis due to right upper and lower lobe pneumonia. Bacterial pneumonia is the most likely cause. However patient lives at [facility] [place] [facility] and has not received the COVID-19 vaccine. Subsequently the patient been placed on COVID precautions and COVID PCR is pending. The patient has been placed on broad-spectrum antibiotic coverage with vancomycin and Zosyn. CPT has been ordered. blood cultures and urine cultures are pending. Patient does have indwelling Sauceda catheter with UA demonstrating leukocyte esterase, 10-15 wbc's and trace bacteria. UTIs less likely cause for the patient's sepsis. He does have multiple decubitus ulcers and has recently been treated for osteomyelitis of these wounds. Wound Care has been consulted for recommendations as to wound management. The patient does have a PICC line in place which I suspect was likely supposed to be removed after he finishes antibiotic therapy at the beginning of October. The patient line was not removed and the specifics on a plan of treatment need to be clarified. The patient did not know if the PICC line was post remain in place. He cannot tell me where he received his care for his decubitus ulcers. 10/31 patient COVID test is negative, patient is seen by pulmonology suspect patient has a bilateral pneumonia recommending to continue Cefepime, vancomycin and added azithromycin to cover for atypical, started the patient on Solu-Medrol 80 mg every 6 hours, volleyball coach suspect patient may also have underlining CHF,. Stopped IVF and started the patient on IV Lasix to diurese, also adjusted his BiPAP, suspect patient is a very high risk of respiratory failure need close monitoring, today patient is feeling better but does complaint of pain and neck and bilateral shoulder will apply Lidoderm patches will continue to monitor and further recommendation to follow. 11/01 today patient doing better clinically and not a short of breath, discussed with volleyball coach patient nasopharynx is positive for MRSA and 1 bottle blood culture is positive for peptostreptococcus, and corynebacterium, recommended to continue cefepime and vancomycin until FridayNovember 06, will continue present management, applied 3 Lidoderm patches on upper back to control some of his pain, will continue to monitor and further recommendation to follow. 11/02 patient remains clinically stable has no complaint of cough shortness of breath no fever or chills, will continue present management Cefepime and vancomycin until Friday and then will discharge the patient back to senior care. (2) Bilateral pneumonia: Code(s): J18.9 - Pneumonia, unspecified organism Status: Acute Assessment and Plan: Plan is above (3) Decubitus ulcers: Qualifiers: Pressure injury location: sacral region Pressure injury stage: unspecified pressure injury stage Qualified Code(s): L89.159 - Pressure ulcer of sacral region, unspecified stage Code(s): L89.90 - Pressure ulcer of unspecified site, unspecified stage Status: Acute Assessment and Plan: Will have wound team assess the patient and and treat (4) Brugada syndrome: Code(s): I49.8 - Other specified cardiac arrhythmias Status: Acute Assessment and Plan: Patient with of Brugada syndrome tend to have cardiac arrhythm
--- NOTE | 2020-11-02 17:40 | PC.NURSE ---
Called to room states feels short of breath, o2 on at 5l high flow. Resp even and unlabored, rate 24. O2 sat 75%. Increased o2 to 10l high flow, sats at 84-85. Respiratory called for assistance. Dr Montez called and updated on condition, states to use bipap. 1744 Respiratory placed on bipap 03/13 at 100%, o2 sat at 93-96%. patient states feels better at present.
[2020-11-02] MEDS: AMITRIPTYLINE HCL 25 MG TABLET 200 MG PO (21:11)
[2020-11-03] VITALS (30 sets, daily range): BP systolic 115–133; BP diastolic 56–99; PULSE 90–114; RESP 20–42; TEMP 36.6–39.7; O2SAT 87–100
[2020-11-03] MEDS: CENTRAL LINE FLUSH 10 ML IV PUSH ×4 (00:39→21:44)
[2020-11-03] MEDS: IPRATROPIUM BR 0.02% INH SOLN 0.5 MG/2.5 ML VIAL INHALATION ×4 (02:12→20:35)
[2020-11-03] MEDS: SILVERGEL (ELTA) 45 ML 1 APPLIC TOPICAL ×2 (09:00→09:31)
[2020-11-03] MEDS: amLODIPine BESYLATE 5 MG TABLET 10 MG PO (09:31)
[2020-11-03] MEDS: BACLOFEN 10 MG TABLET PO ×3 (09:32→17:18)
[2020-11-03] MEDS: DULoxetine HCL 60 MG CAPSULE.DR PO (09:32)
[2020-11-03] MEDS: ENOXAPARIN 40 MG/0.4 ML SYRINGE SUB-Q (09:32)
[2020-11-03] MEDS: PROPRANOLOL HCL 10 MG TABLET PO (09:33)
[2020-11-03] MEDS: LIDOCAINE 5% PATCH 3 PATCH TRANSDERM (09:33)
[2020-11-03] MEDS: PARoxetine 20 MG TABLET PO (09:33)
[2020-11-03] MEDS: lamoTRIgine 25 MG TABLET PO (09:33)
[2020-11-03] MEDS: SENNA/DOCUSATE SODIUM TABLET 1 TAB PO (09:34)
[2020-11-03] MEDS: SACCHAROMYCES BOULARDII 250 MG CAPSULE PO (09:34)
[2020-11-03] MEDS: PREGABALIN (*CRX) 75 MG CAPSULE 150 MG PO ×2 (09:36→17:09)
[2020-11-03 10:49] LABS: Alveolar/Arterial O2 Gradient 600.5 mmHg; Base Excess ABG 2.1 mEq/l (+/-2.0); Carboxyhemoglobin 0.1 % THb (0-2.0); Device NON-INVASIVE VENT; Fractional Inspired Oxygen 100 %; HCO3 ABG 26.2 mEq/l (22.0-26.0); Methemoglobin ABG 0.3 %THb (0-1.5); Modified Allen's Test Pass; Oxygen Content ABG 11.6 %vol (16.0-22.0); Oxygen Saturation ABG 95.4 % (95.0-100.0); Oxyhemoglobin 93.2 % THb (90.0-100.0); PCO2 ABG 38.9 mmHg (35.0-45.0); PO2 ABG 73.6 mmHg (80.0-100.0); PO2 FiO2 Ratio Arterial Blood 0.74 %; Reduced Hemoglobin 6.4 %THb (0-5.0); Site Drawn RIGHT RADIAL; Total Hemoglobin 8.8 g/dL (12.0-18.0); pH ABG 7.447 (7.350-7.450)
[2020-11-03 10:50] LABS: Non-Invasive Expiratory Pressure 5 CMH2O; Non-Invasive Inspiratory Pressure 15 CMH2O; Non-Invasive Vent Rate 10 /MIN
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
--- NOTE | 2020-11-03 13:30 | PC.NURSE ---
This patient, Lazaro Olvera, was transferred to IMU 209 on 11/03/20 at 1330 per bed. Personal belongings sent with patient. Report given to [RN. Appropriate documentation sent with patient.
--- NOTE | 2020-11-03 14:13 | PM.TDS ---
Transfer Discharge Sum: Prov Provider Date of admission: 10/27/20 23:02 Primary care physician: En Mccann MD Admitting clinician: Zora Morales DO Consults: 10/28/20 Wound/ET Consult Routine Reason for Consult:: Multiple decubitus ulcers 10/29/20 Consult to Physician Routine Comment: Consulting Provider: Collins Jackson Reason for consultation: PNA worsening resp failure Has provider been notified: No DS: Admitting Diagnosis Admitting Diagnosis Admitting Diagnosis: Chief Complaint: Fever, cough and sore throat DS: Discharge Diagnosis Discharge Diagnosis (1) Sepsis: Qualifiers: Sepsis type: sepsis due to unspecified organism Sepsis acute organ dysfunction status: with acute organ dysfunction Severe sepsis acute organ dysfunction type: acute respiratory failure Acute respiratory failure type: with hypoxia Severe sepsis shock status: without septic shock Qualified Code(s): A41.9 - Sepsis, unspecified organism; R65.20 - Severe sepsis without septic shock; J96.01 - Acute respiratory failure with hypoxia Code(s): A41.9 - Sepsis, unspecified organism Status: Acute Assessment and Plan: 11/02/20 14:21 The patient has sepsis due to right upper and lower lobe pneumonia. Bacterial pneumonia is the most likely cause. However patient lives at a alf facility and has not received the COVID-19 vaccine. Subsequently the patient been placed on COVID precautions and COVID PCR is pending. The patient has been placed on broad-spectrum antibiotic coverage with vancomycin and Zosyn. CPT has been ordered. blood cultures and urine cultures are pending. Patient does have indwelling Sauceda catheter with UA demonstrating leukocyte esterase, 10-15 wbc's and trace bacteria. UTIs less likely cause for the patient's sepsis. He does have multiple decubitus ulcers and has recently been treated for osteomyelitis of these wounds. Wound Care has been consulted for recommendations as to wound management. The patient does have a PICC line in place which I suspect was likely supposed to be removed after he finishes antibiotic therapy at the beginning of October. The patient line was not removed and the specifics on a plan of treatment need to be clarified. The patient did not know if the PICC line was post remain in place. He cannot tell me where he received his care for his decubitus ulcers. 10/31 patient COVID test is negative, patient is seen by pulmonology suspect patient has a bilateral pneumonia recommending to continue Cefepime, vancomycin and added azithromycin to cover for atypical, started the patient on Solu-Medrol 80 mg every 6 hours, material planning analyst suspect patient may also have underlining CHF,. Stopped IVF and started the patient on IV Lasix to diurese, also adjusted his BiPAP, suspect patient is a very high risk of respiratory failure need close monitoring, today patient is feeling better but does complaint of pain and neck and bilateral shoulder will apply Lidoderm patches will continue to monitor and further recommendation to follow. 11/01 today patient doing better clinically and not a short of breath, discussed with material planning analyst patient nasopharynx is positive for MRSA and 1 bottle blood culture is positive for peptostreptococcus, and corynebacterium, recommended to continue cefepime and vancomycin until FridayNovember 06, will continue present management, applied 3 Lidoderm patches on upper back to control some of his pain, will continue to monitor and further recommendation to follow. 11/02 patient remains clinically stable has no complaint of cough shortness of breath no fever or chills, will continue present management Cefepime and vancomycin until Friday and then [facility] (2) Bilateral pneumonia: Code(s): J18.9 - Pneumonia, unspecified organism Status: Acute Assessment and Plan: Plan is above (3) Decubitus ulcers:
[2020-11-03 15:09] LABS: Rheumatoid Factor < 12.0 IU/ML (<12)
[2020-11-03 15:48] LABS: HIV 1/2 Ab P24 Ag Result Negative (Negative)
[2020-11-03] MEDS: polyethylene glycoL 3350 17 GM POWD.PACK PO (17:18)
[2020-11-03 17:40] LABS: Alveolar/Arterial O2 Gradient 597.6 mmHg; Base Excess ABG 2.6 mEq/l (+/-2.0); Fractional Inspired Oxygen 100 %; HCO3 ABG 26.9 mEq/l (22.0-26.0); Oxygen Content ABG 11.5 %vol (16.0-22.0); Oxygen Saturation ABG 95.6 % (95.0-100.0); Oxyhemoglobin 92.1 % THb (90.0-100.0); PCO2 ABG 40.3 mmHg (35.0-45.0); PO2 ABG 75.1 mmHg (80.0-100.0); PO2 FiO2 Ratio Arterial Blood 0.75 %; Total Hemoglobin 8.8 g/dL (12.0-18.0); pH ABG 7.442 (7.350-7.450)
[2020-11-03 17:42] LABS: Device NON-INVASIVE VENT; Modified Allen's Test Pass; Site Drawn RIGHT RADIAL
[2020-11-03 17:43] LABS: Non-Invasive Expiratory Pressure 5 CMH2O; Non-Invasive Inspiratory Pressure 15 CMH2O; Non-Invasive Vent Rate 10 /MIN
[2020-11-03] MEDS: AMITRIPTYLINE HCL 25 MG TABLET 200 MG PO (22:37)
[2020-11-03 23:28] LABS: Vancomycin Trough 16.3 ug/mL (10.0-20.0)
[2020-11-04] VITALS: PULSE 100
[2020-11-04 00:02] VITALS: PULSE 102; RESP 47; O2SAT 98
[2020-11-04 00:40] VITALS: TEMP 39.3
[2020-11-07 00:44] LABS: ANCA Screen Negative (Negative)
[2020-11-08 09:36] LABS: Anti Cyclic Citrullinated Pept <16 Units (<20)
[2020-11-14 20:49] LABS: ANA Cascade Screen Negative (Negative)
== END 2020-11-04 00:45 | disposition short-term general hospital (02) | DRG 720 ==
LOC: ANHED 21:59 → ANHIMU 10-30 07:50 → ANH3MEDSUR 11-03 08:56 → ANHIMU 11-07 13:29
PROVIDERS: Family Medicine; Hospitalist; Internal Medicine Critical Care Medicine; Internal Medicine Pulmonary Disease; Admitting Provider Internal Medicine; Emergency Provider Emergency Medicine; PCP Family Medicine; Visit Provider Internal Medicine
DX: A41.9 Sepsis, unspecified organism (principal); R65.20 Severe sepsis without septic shock; J18.9 Pneumonia, unspecified organism; J96.01 Acute respiratory failure with hypoxia; Z20.822 Contact with and (suspected) exposure to COVID-19; I49.8 Other specified cardiac arrhythmias; N31.9 Neuromuscular dysfunction of bladder, unspecified; E55.9 Vitamin D deficiency, unspecified; G47.33 Obstructive sleep apnea (adult) (pediatric); L89.159 Pressure ulcer of sacral region, unspecified stage; M46.28 Osteomyelitis of vertebra, sacral and sacrococcygeal region; K59.00 Constipation, unspecified; G82.50 Quadriplegia, unspecified; K59.2 Neurogenic bowel, not elsewhere classified; S14.109S Unspecified injury at unspecified level of cervical spinal cord, sequela; Y24.9XXS Unspecified firearm discharge, undetermined intent, sequela; Z22.322 Carrier or suspected carrier of Methicillin resistant Staphylococcus aureus
CPT/HCPCS: 36415; 36600; 71045; 71250; 71275; 74176; 80048; 80053; 80202; 81001; 82375; 82565; 82805; 83050; 83605; 83735; 83880; 84484; 85025; 85610; 85730; 86021; 86038; 86200; 86331; 86430; 86606; 86609; 86703; 87040; 87077; 87081; 87086; 87880; 93005; 93306; 94002; 94003; 94640; 94660; 94667; 94668; 96361; 96365; 96366; 96367; 99285; A9270; C9803; G0432; J0131; J0456; J0692; J0696; J1650; J1940; J2405; J2543; J2930; J2997; J3370; J3480; J7120; Q9967; U0003; U0005